=== PATIENT | male | born 1955 | race Caucasian/White ===

== ENCOUNTER → 2018-04-25 | Outpatient (CLI) | payer MEDICARE, OTHER ==
[2018-04-25 10:06] LABS: Basophils # (auto) 0.1 uL; Basophils % (auto) 1.3 % (0.0-2.0); Eosinophils # (auto) 0.2 uL; Eosinophils % (auto) 5.1 % (0.0-7.0); Hematocrit 52.4 % (41.0-53.0); Hemoglobin 17.1 g/dL (13.5-17.5); Lymphocytes # (auto) 1.1 uL; Lymphocytes % (auto) 24.9 % (10.0-50.0); Mean Corpuscular Hemoglobin 32.2 pg (28.0-32.0); Mean Corpuscular Hgb Conc. 32.7 g/dL (32.0-36.0); Mean Corpuscular Volume 98.5 fL (80.0-100.0); Monocytes # (auto) 0.6 uL; Monocytes % (auto) 13.4 % (0.0-12.0); Neutrophils # (auto) 2.5 uL; Neutrophils % (auto) 55.3 % (37.0-80.0); Nucleated Red Blood Cells % 0.1 %; Platelet Count (auto) 151 10^3/uL (140-450); Red Blood Cells 5.31 10^6/uL (4.5-5.90); Red Cell Distribution Width 18.1 % (11.8-14.3); White Blood Cell 4.6 10^3/uL (4.4-10.8)
[2018-04-25 10:46] LABS: Potassium 4.2 mmol/L (3.5-5.1)
[2018-04-25 11:02] LABS: Albumin 3.5 g/dL (3.4-5.0); BUN/Creatinine Ratio 4.7; Bilirubin, Total 0.6 mg/dL (0.2-1.0); Calcium 9.7 mg/dL (8.5-10.1); Phosphorus 6.2 mg/dL (2.5-4.90); Total Protein 8.4 g/dL (6.4-8.2); Uric Acid 4.7 mg/dL (3.5-7.2)
[2018-04-25 11:45] LABS: INR > 10 (0.9-1.15)
[2018-04-25 12:12] LABS: Free T4 (Free Thyroxine) 0.9 ng/dL (0.89-1.76)
[2018-04-25 12:13] LABS: Prostate Specific Antigen 0.9 ng/mL (0.0-4.0)
== END | disposition home or self-care (01) ==
LOC: LAB 09:25
PROVIDERS: ATTEND Internal Medicine
DX: I10 Essential (primary) hypertension (principal); I48.91 Unspecified atrial fibrillation; E11.40 Type 2 diabetes mellitus with diabetic neuropathy, unspecified; R35.1 Nocturia
CPT/HCPCS: 36415; 80053; 80061; 82043; 82607; 83036; 83970; 84100; 84153; 84439; 84443; 84550; 85025; 85610; 85652

== ENCOUNTER → 2018-04-26 | Outpatient (CLI) | payer MEDICARE, OTHER ==
[2018-04-26 10:30] LABS: Basophils # (auto) 0 uL; Basophils % (auto) 0.6 % (0.0-2.0); Eosinophils # (auto) 0.2 uL; Eosinophils % (auto) 4.2 % (0.0-7.0); Hematocrit 49.7 % (41.0-53.0); Hemoglobin 16.6 g/dL (13.5-17.5); Lymphocytes # (auto) 1.3 uL; Lymphocytes % (auto) 25.8 % (10.0-50.0); Mean Corpuscular Hemoglobin 32.6 pg (28.0-32.0); Mean Corpuscular Hgb Conc. 33.4 g/dL (32.0-36.0); Mean Corpuscular Volume 97.5 fL (80.0-100.0); Monocytes # (auto) 0.7 uL; Monocytes % (auto) 13.4 % (0.0-12.0); Neutrophils # (auto) 2.9 uL; Nucleated Red Blood Cells % 0.1 %; Platelet Count (auto) 137 10^3/uL (140-450); Red Cell Distribution Width 17.7 % (11.8-14.3); White Blood Cell 5.2 10^3/uL (4.4-10.8)
[2018-04-26 10:45] LABS: Prothrombin Time 49.4 sec (9.27-12.13)
[2018-04-26 10:52] LABS: INR 5.06 (0.9-1.15)
== END | disposition home or self-care (01) ==
LOC: LAB 08:50
PROVIDERS: ATTEND Internal Medicine
DX: D68.9 Coagulation defect, unspecified (principal); Z92.29 Personal history of other drug therapy; Z95.2 Presence of prosthetic heart valve
CPT/HCPCS: 36415; 85025; 85610

== ENCOUNTER → 2018-07-04 | Outpatient (CLI) | payer MEDICARE, OTHER | END | disposition home or self-care (01) | LOC: XYW 09:26 | PROVIDERS: ATTEND Internal Medicine Cardiovascular Disease | DX: I35.8 Other nonrheumatic aortic valve disorders (principal); I70.0 Atherosclerosis of aorta; I34.0 Nonrheumatic mitral (valve) insufficiency | CPT/HCPCS: 93306 ==

== ENCOUNTER → 2018-08-27 | Outpatient (CLI) | payer MEDICARE | END | disposition home or self-care (01) | LOC: LAB 10:52 | PROVIDERS: ATTEND Internal Medicine | DX: E11.9 Type 2 diabetes mellitus without complications (principal) | CPT/HCPCS: 36415; 83036 ==

== ENCOUNTER → 2019-05-01 | Outpatient (CLI) | payer MEDICARE | END | disposition home or self-care (01) | LOC: XYW 10:01 | PROVIDERS: ATTEND Internal Medicine | DX: Z01.810 Encounter for preprocedural cardiovascular examination (principal); I05.9 Rheumatic mitral valve disease, unspecified | CPT/HCPCS: 93306 ==

== ENCOUNTER → 2019-06-24 | Outpatient (CLI) | payer MEDICARE, OTHER ==
[2019-06-24 10:24] LABS: Basophils # (auto) 0 uL; Basophils % (auto) 0.7 % (0.0-2.0); Eosinophils # (auto) 0.2 uL; Eosinophils % (auto) 2.8 % (0.0-7.0); Hematocrit 44.1 % (41.0-53.0); Hemoglobin 15.2 g/dL (13.5-17.5); Lymphocytes # (auto) 1.1 uL; Lymphocytes % (auto) 15.9 % (10.0-50.0); Mean Corpuscular Hemoglobin 33.9 pg (28.0-32.0); Mean Corpuscular Hgb Conc. 34.4 g/dL (32.0-36.0); Mean Corpuscular Volume 98.7 fL (80.0-100.0); Monocytes # (auto) 0.5 uL; Monocytes % (auto) 7.7 % (0.0-12.0); Neutrophils # (auto) 4.8 uL; Neutrophils % (auto) 72.9 % (37.0-80.0); Nucleated Red Blood Cells % 0.1 %; Platelet Count (auto) 188 10^3/uL (140-450); Red Blood Cells 4.47 10^6/uL (4.5-5.90); Red Cell Distribution Width 15.8 % (11.8-14.3); White Blood Cell 6.7 10^3/uL (4.4-10.8)
[2019-06-24 10:42] LABS: Urine Bacteria FEW /hpf (None Seen); Urine Blood 1+ /uL (Negative); Urine WBC 34 /hpf (0 - 3)
[2019-06-24 10:58] LABS: Albumin 3.4 g/dL (3.4-5.0); Calcium 9.4 mg/dL (8.5-10.1); Potassium 4.4 mmol/L (3.5-5.1)
[2019-06-24 11:02] LABS: BUN/Creatinine Ratio 4.8; Bilirubin, Total 0.5 mg/dL (0.2-1.0); Total Protein 8.5 g/dL (6.4-8.2)
[2019-06-24 11:19] LABS: Free T4 (Free Thyroxine) 0.95 ng/dL (0.89-1.76); Prostate Specific Antigen 2.77 ng/mL (0.0-4.0)
== END | disposition home or self-care (01) ==
LOC: LAB 10:01
PROVIDERS: ATTEND Internal Medicine
DX: E11.21 Type 2 diabetes mellitus with diabetic nephropathy (principal); E11.22 Type 2 diabetes mellitus with diabetic chronic kidney disease; N18.6 End stage renal disease; R35.0 Frequency of micturition
CPT/HCPCS: 36415; 80053; 80061; 81001; 82043; 83036; 84153; 84439; 84443; 85025; 85652

== ENCOUNTER 2019-12-23 07:43 | Day surgery (SDC) | payer MEDICARE, OTHER ==
[2019-12-17 10:28] LABS: INR 2.53 (0.9-1.15); Partial Thromboplastin Time 40.6 sec (23.64-32.05)
[2019-12-17 10:33] LABS: Basophils # (auto) 0 10 ^3/uL (0-0.2); Basophils % (auto) 0.6 % (0.0-2.0); Eosinophils # (auto) 0.1 10 ^3/uL (0-0.8); Eosinophils % (auto) 1.5 % (0.0-7.0); Hematocrit 45.6 % (41.0-53.0); Hemoglobin 15.4 g/dL (13.5-17.5); Lymphocytes # (auto) 1.2 10 ^3/uL (0.4-5.4); Lymphocytes % (auto) 16.3 % (10.0-50.0); Mean Corpuscular Hemoglobin 34.8 pg (28.0-32.0); Mean Corpuscular Hgb Conc. 33.7 g/dL (32.0-36.0); Mean Corpuscular Volume 103.2 fL (80.0-100.0); Monocytes # (auto) 0.6 10 ^3/uL (0-1.3); Monocytes % (auto) 8.8 % (0.0-12.0); Neutrophils # (auto) 5.4 10 ^3/uL (1.6-8.6); Neutrophils % (auto) 72.8 % (37.0-80.0); Nucleated Red Blood Cells % 0.4 %; Platelet Count (auto) 152 10^3/uL (140-450); Red Blood Cells 4.42 10^6/uL (4.5-5.90); Red Cell Distribution Width 14.5 % (11.8-14.3); White Blood Cell 7.4 10^3/uL (4.4-10.8)
[2019-12-17 10:43] LABS: Albumin 3.7 g/dL (3.4-5.0); Calcium 10.4 mg/dL (8.5-10.1)
[2019-12-17 10:48] LABS: BUN/Creatinine Ratio 5.5; Bilirubin, Total 0.5 mg/dL (0.2-1.0); Total Protein 8.6 g/dL (6.4-8.2)
[~2019-12-23] VITALS: Ht 182.9 cm; Wt 90.7 kg
[~2019-12-23 07:43] MED LIST: ATOR40TA52 PO; CINA30TA2 PO; FERR1TAB17 PO; INSUINJ18 SC; LEVEMIR SC; LOSA25TA38 PO; NIFE1TAB36 PO; WARF6TAB21 PO
[2019-12-23 09:01] LABS: INR 1.08 (0.9-1.15)
[2019-12-23 09:09] LABS: Albumin 3.9 g/dL (3.4-5.0); BUN/Creatinine Ratio 4.4; Calcium 9.1 mg/dL (8.5-10.1); Potassium 3.8 mmol/L (3.5-5.1)
[2019-12-23 09:12] LABS: Bilirubin, Total 0.7 mg/dL (0.2-1.0); Total Protein 9.6 g/dL (6.4-8.2)
[2019-12-23] MEDS ORDERED: LIDOCAINE 2%HCL (LOCAL ANESTH.) INJ 20ML MDV ONE (11:57)
[2019-12-23] MEDS ORDERED: VANCOMYCIN 1GM/250ML 0 ML IV ONE (11:57)
[2019-12-23] MEDS ORDERED: VANCOMYCIN HCL 1000 MG VL ONE (11:57)
[2019-12-23] MEDS ORDERED: fentaNYL CITRATE 100 MCG/2 ML VL ONE (11:57)
[2019-12-23] MEDS ORDERED: MIDAZOLAM HCL 1MG/1ML-2 ML VIAL ONE (11:57)
[2019-12-23] MEDS ORDERED: ceFAZolin 1GM VL ONE (12:03)
[2019-12-23] MEDS ORDERED: VANCOMYCIN 1GM/250ML 250 ML IV ONE (12:06)
[2019-12-23] MEDS ORDERED: HYDROcodone-ACET 5/325MG TAB PO PRN (14:30)
[2019-12-23] MEDS ORDERED: ACETAMINOPHEN 325 MG TAB PO PRN (14:30)
[2019-12-23] MEDS ORDERED: cloNIDine HCL 0.1 MG TAB PO ONE (14:45)
== END 2019-12-23 17:00 | disposition home or self-care (01) ==
LOC: CATH 07:43
PROVIDERS: ATTEND Internal Medicine
DX: Z45.010 Encounter for checking and testing of cardiac pacemaker pulse generator [battery] (principal); I10 Essential (primary) hypertension; E11.9 Type 2 diabetes mellitus without complications; E78.5 Hyperlipidemia, unspecified; I73.9 Peripheral vascular disease, unspecified; Z87.891 Personal history of nicotine dependence; Z11.59 Encounter for screening for other viral diseases
CPT/HCPCS: 33228; 36415; 80053; 85025; 85610; 85730; 93005; J2250; J3010; J3370; J7030; U0003; 99152; 99153; J0690

== ENCOUNTER 2020-02-24 12:19 | Inpatient (IN) | payer MEDICARE, OTHER ==
[~2020-02-24] VITALS: Ht 182.9 cm; Wt 89.7 kg
[2020-02-24 13:18] LABS: Eosinophils # (auto) 0.1 10 ^3/uL (0-0.8); Eosinophils % (auto) 0.3 % (0.0-7.0); Hematocrit 41.4 % (41.0-53.0); Hemoglobin 14.5 g/dL (13.5-17.5); White Blood Cell 17.9 10^3/uL (4.4-10.8)
[2020-02-24 13:20] LABS: Basophils # (auto) 0.1 10 ^3/uL (0-0.2); Basophils % (auto) 0.3 % (0.0-2.0); Lymphocytes % (auto) 5.4 % (10.0-50.0); Mean Corpuscular Hemoglobin 34.5 pg (28.0-32.0); Mean Corpuscular Hgb Conc. 34.9 g/dL (32.0-36.0); Mean Corpuscular Volume 98.9 fL (80.0-100.0); Monocytes # (auto) 1.3 10 ^3/uL (0-1.3); Monocytes % (auto) 7.2 % (0.0-12.0); Neutrophils # (auto) 15.6 10 ^3/uL (1.6-8.6); Neutrophils % (auto) 86.8 % (37.0-80.0); Platelet Count (auto) 240 10^3/uL (140-450); Red Blood Cells 4.18 10^6/uL (4.5-5.90)
[2020-02-24 13:32] LABS: INR 2.63 (0.9-1.15); Partial Thromboplastin Time 43.8 sec (23.0-31.2)
[2020-02-24 13:35] LABS: Albumin 3.5 g/dL (3.4-5.0); Calcium 9.4 mg/dL (8.5-10.1); Potassium 4.4 mmol/L (3.5-5.1)
[2020-02-24 13:39] LABS: BUN/Creatinine Ratio 4.8; Bilirubin, Total 0.7 mg/dL (0.2-1.0); Total Protein 9.2 g/dL (6.4-8.2)
[2020-02-24] MEDS ORDERED: VANCOMYCIN PER PHARMACY 0 MG IV SCH (14:15)
[2020-02-24] MEDS ORDERED: NITROGLYCERIN 0.4 MG SL TAB SL PRN (14:15)
[2020-02-24] MEDS ORDERED: ACETAMINOPHEN 500 MG TAB PO PRN (14:15)
[2020-02-24] MEDS ORDERED: MORPHINE SULF INJ 2 MG/ML SYRINGE 1ML IV PRN ×2 (14:15)
[2020-02-24] MEDS ORDERED: DEXTROSE (50%) 50ML SYRG IV PRN (14:15)
[2020-02-24] MEDS ORDERED: HYDROcodone-ACET 5/325MG TAB PO PRN (14:15)
[2020-02-24] MEDS ORDERED: VANCOMYCIN 1GM/250ML 250 ML IV ONE (16:00)
[2020-02-24] MEDS: ACCU-CHEK COMFORT CURVE STRIP VI SCH ×2 (17:00→21:49)
[2020-02-24] MEDS: InsuLIN REG 1unit/0.01ml Soln (100units/ml) SC SCH ×2 (17:00→21:51)
[2020-02-24] MEDS ORDERED: VANCOMYCIN 500 MG in D5W 5% 100 ML IV ONE (17:00)
[2020-02-24] MEDS ORDERED: NIFE1TAB30 PO (18:33)
[2020-02-24] MEDS ORDERED: INSU100I49 SC (18:36)
[2020-02-24] MEDS ORDERED: WARF3TAB22 PO (18:37)
[2020-02-24] MEDS: NIFEdipine ER 30 MG TAB PO SCH (21:49)
[2020-02-24 22:00] VITALS: BP 132/54
[2020-02-25] VITALS (8 sets, daily range): BP systolic 96–146; BP diastolic 46–64
[2020-02-25] MEDS: ACCU-CHEK COMFORT CURVE STRIP VI SCH ×4 (06:27→22:09)
[2020-02-25] MEDS: InsuLIN REG 1unit/0.01ml Soln (100units/ml) SC SCH ×4 (06:27→22:06)
[2020-02-25 07:06] LABS: Basophils # (auto) 0 10 ^3/uL (0-0.2); Basophils % (auto) 0.3 % (0.0-2.0); Eosinophils # (auto) 0.3 10 ^3/uL (0-0.8); Mean Corpuscular Hemoglobin 34.4 pg (28.0-32.0)
[2020-02-25 07:09] LABS: INR 2.27 (0.9-1.15)
[2020-02-25 07:10] LABS: Eosinophils % (auto) 2.6 % (0.0-7.0); Hematocrit 37.4 % (41.0-53.0); Hemoglobin 13.1 g/dL (13.5-17.5); Lymphocytes # (auto) 1.1 10 ^3/uL (0.4-5.4); Lymphocytes % (auto) 10.7 % (10.0-50.0); Mean Corpuscular Volume 98.1 fL (80.0-100.0); Neutrophils # (auto) 8.2 10 ^3/uL (1.6-8.6); Neutrophils % (auto) 77.4 % (37.0-80.0); Nucleated Red Blood Cells % 0.1 %; Platelet Count (auto) 189 10^3/uL (140-450); Red Blood Cells 3.81 10^6/uL (4.5-5.90); Red Cell Distribution Width 16.4 % (11.8-14.3); White Blood Cell 10.6 10^3/uL (4.4-10.8)
[2020-02-25] MEDS ORDERED: FAMOTIDINE 20 MG TAB PO SCH (10:00)
[2020-02-25] MEDS ORDERED: ATORVASTATIN 20 MG TAB PO SCH (10:00)
[2020-02-25] MEDS ORDERED: LOSARTAN POTASSIUM 25 MG TAB PO SCH (10:00)
[2020-02-25 10:06] LABS: Eosinophils # (auto) 0.2 10 ^3/uL (0-0.8)
[2020-02-25 10:08] LABS: Basophils # (auto) 0 10 ^3/uL (0-0.2); Basophils % (auto) 0.4 % (0.0-2.0); Eosinophils % (auto) 2.3 % (0.0-7.0); Hematocrit 43.8 % (41.0-53.0); Hemoglobin 14.8 g/dL (13.5-17.5); Lymphocytes # (auto) 0.9 10 ^3/uL (0.4-5.4); Lymphocytes % (auto) 9.7 % (10.0-50.0); Mean Corpuscular Hemoglobin 33.6 pg (28.0-32.0); Mean Corpuscular Hgb Conc. 33.9 g/dL (32.0-36.0); Mean Corpuscular Volume 99.3 fL (80.0-100.0); Monocytes # (auto) 0.9 10 ^3/uL (0-1.3); Monocytes % (auto) 9.2 % (0.0-12.0); Neutrophils # (auto) 7.6 10 ^3/uL (1.6-8.6); Neutrophils % (auto) 78.4 % (37.0-80.0); Nucleated Red Blood Cells % 0.1 %; Platelet Count (auto) 210 10^3/uL (140-450); Red Blood Cells 4.41 10^6/uL (4.5-5.90); Red Cell Distribution Width 16.2 % (11.8-14.3); White Blood Cell 9.7 10^3/uL (4.4-10.8)
[2020-02-25 10:34] LABS: Albumin 3.2 g/dL (3.4-5.0); Calcium 8.9 mg/dL (8.5-10.1)
[2020-02-25 10:38] LABS: BUN/Creatinine Ratio 4.7; Bilirubin, Total 0.9 mg/dL (0.2-1.0); Total Protein 8.5 g/dL (6.4-8.2)
[2020-02-25] MEDS: INSULIN LANTUS (GLARGINE) 1 /0.01ml (100units/ml) SC SCH (11:00)
[2020-02-25 11:02] LABS: INR 2.25 (0.9-1.15)
[2020-02-25] MEDS ORDERED: ceFAZolin 1GM VL ONE (11:03)
[2020-02-25] MEDS: NIFEdipine ER 30 MG TAB PO SCH (22:08)
[2020-02-26 04:53] VITALS: BP 141/57
[2020-02-26] MEDS: InsuLIN REG 1unit/0.01ml Soln (100units/ml) SC SCH ×3 (06:43→17:00)
[2020-02-26] MEDS: INSULIN LANTUS (GLARGINE) 1 /0.01ml (100units/ml) SC SCH (06:43)
[2020-02-26] MEDS: ACCU-CHEK COMFORT CURVE STRIP VI SCH ×3 (06:48→17:00)
[2020-02-26 07:17] LABS: Basophils # (auto) 0 10 ^3/uL (0-0.2); Basophils % (auto) 0.4 % (0.0-2.0); Eosinophils # (auto) 0.2 10 ^3/uL (0-0.8); Eosinophils % (auto) 2.7 % (0.0-7.0); Hematocrit 40.2 % (41.0-53.0); Hemoglobin 13.6 g/dL (13.5-17.5); Lymphocytes % (auto) 12.6 % (10.0-50.0); Mean Corpuscular Hemoglobin 33.7 pg (28.0-32.0); Mean Corpuscular Hgb Conc. 33.9 g/dL (32.0-36.0); Mean Corpuscular Volume 99.5 fL (80.0-100.0); Monocytes # (auto) 0.7 10 ^3/uL (0-1.3); Monocytes % (auto) 9.8 % (0.0-12.0); Neutrophils # (auto) 5.7 10 ^3/uL (1.6-8.6); Neutrophils % (auto) 74.5 % (37.0-80.0); Nucleated Red Blood Cells % 0.1 %; Platelet Count (auto) 201 10^3/uL (140-450); Red Blood Cells 4.04 10^6/uL (4.5-5.90); White Blood Cell 7.6 10^3/uL (4.4-10.8)
[2020-02-26 07:41] LABS: Calcium 8.9 mg/dL (8.5-10.1); Potassium 4.5 mmol/L (3.5-5.1)
[2020-02-26 09:00] VITALS: BP 141/62
[2020-02-26 13:00] VITALS: BP 140/58
[2020-02-26 14:06] VITALS: BP 129/56
[2020-02-26] MEDS ORDERED: ATORVASTATIN 20 MG TAB PO SCH (22:00)
== END 2020-02-26 17:20 | disposition home or self-care (01) | DRG 463 ==
LOC: ER 12:19 → TELE-WESTW 12:20
PROVIDERS: ADMIT Nurse Practitioner Acute Care; ATTEND Internal Medicine
PROC: 5A1D70Z Performance of Urinary Filtration, Intermittent, Less than 6 Hours Per Day (ICD-10-PCS; 2020-02-25)
PROC: 0JBQ0ZZ Excision of Right Foot Subcutaneous Tissue and Fascia, Open Approach (ICD-10-PCS; principal; 2020-02-25 11:16)
DX: T87.43 Infection of amputation stump, right lower extremity (principal); N18.6 End stage renal disease; L03.115 Cellulitis of right lower limb; E87.1 Hypo-osmolality and hyponatremia; L02.611 Cutaneous abscess of right foot; I12.0 Hypertensive chronic kidney disease with stage 5 chronic kidney disease or end stage renal disease; D68.59 Other primary thrombophilia; E11.621 Type 2 diabetes mellitus with foot ulcer; L97.519 Non-pressure chronic ulcer of other part of right foot with unspecified severity; E11.22 Type 2 diabetes mellitus with diabetic chronic kidney disease; D72.829 Elevated white blood cell count, unspecified; E78.5 Hyperlipidemia, unspecified; D63.8 Anemia in other chronic diseases classified elsewhere; E21.2 Other hyperparathyroidism; E88.09 Other disorders of plasma-protein metabolism, not elsewhere classified; Z20.828 Contact with and (suspected) exposure to other viral communicable diseases; I48.91 Unspecified atrial fibrillation; Z79.4 Long term (current) use of insulin; Z95.2 Presence of prosthetic heart valve; Z80.9 Family history of malignant neoplasm, unspecified; Z99.2 Dependence on renal dialysis; Z83.3 Family history of diabetes mellitus; Z95.1 Presence of aortocoronary bypass graft; B99.8 Other infectious disease; Z79.899 Other long term (current) drug therapy
CPT/HCPCS: 36415; 71045; 73700; 80048; 80053; 80202; 82962; 83036; 85025; 85610; 85652; 85730; 86850; 86900; 86901; 87040; 87070; 87075; 87077; 87186; 87205; 87426; 90935; 93005; 93926; 96365; 97110; 97116; 97530; G0378; J0690; J1815; J7060

== ENCOUNTER 2020-07-06 13:24 | Inpatient (IN) | payer BC, MEDICARE, OTHER ==
[~2020-07-06] VITALS: Ht 182.9 cm; Wt 93.7 kg
[~2020-07-06 13:24] MED LIST changes: +INSU100I49 SC; -INSUINJ18 SC; -LOSA25TA38 PO; +NIFE1TAB30 PO; -NIFE1TAB36 PO; +WARF3TAB22 PO
[2020-07-06 14:24] LABS: Basophils # (auto) 0.1 10 ^3/uL (0-0.2); Basophils % (auto) 0.4 % (0.0-2.0); Eosinophils # (auto) 0 10 ^3/uL (0-0.8); Eosinophils % (auto) 0.3 % (0.0-7.0); Hematocrit 42.2 % (41.0-53.0); Hemoglobin 14.4 g/dL (13.5-17.5); Lymphocytes # (auto) 0.7 10 ^3/uL (0.4-5.4); Lymphocytes % (auto) 4.2 % (10.0-50.0); Mean Corpuscular Hemoglobin 32.9 pg (28.0-32.0); Mean Corpuscular Hgb Conc. 34.3 g/dL (32.0-36.0); Mean Corpuscular Volume 95.9 fL (80.0-100.0); Monocytes # (auto) 1.1 10 ^3/uL (0-1.3); Monocytes % (auto) 6.7 % (0.0-12.0); Neutrophils # (auto) 14.6 10 ^3/uL (1.6-8.6); Neutrophils % (auto) 88.4 % (37.0-80.0); Nucleated Red Blood Cells % 0.2 %; Red Cell Distribution Width 14.2 % (11.8-14.3); White Blood Cell 16.5 10^3/uL (4.4-10.8)
[2020-07-06 14:45] LABS: INR 2.22 (0.9-1.15); Partial Thromboplastin Time 40.7 sec (23.0-31.2)
[2020-07-06 14:56] LABS: Albumin 3.2 g/dL (3.4-5.0); Calcium 9.5 mg/dL (8.5-10.1); Potassium 3.7 mmol/L (3.5-5.1)
[2020-07-06 15:01] LABS: BUN/Creatinine Ratio 4.8; Bilirubin, Total 0.5 mg/dL (0.2-1.0); Total Protein 9.8 g/dL (6.4-8.2)
[2020-07-06] MEDS ORDERED: CLINDAMYCIN 600MG IV 50 ML IV ONE (16:15)
[2020-07-06] MEDS ORDERED: ONDANSETRON HCL 4 MG/2 ML VIAL IV PRN (17:15)
[2020-07-06] MEDS ORDERED: DEXTROSE (50%) 50ML SYRG IV PRN (17:15)
[2020-07-06] MEDS ORDERED: VANCOMYCIN PER PHARMACY 0 MG IV SCH (17:15)
[2020-07-06] MEDS ORDERED: MORPHINE SULFATE INJECTION 2 MG/ML SYRG IV PRN ×2 (17:15)
[2020-07-06] MEDS ORDERED: NITROGLYCERIN 0.4 MG SL TAB SL PRN (17:15)
[2020-07-06] MEDS ORDERED: HYDROcodone-ACET 5/325MG TAB PO PRN (17:15)
[2020-07-06 18:22] LABS: Cholesterol 143 mg/dL (< 200); HDL Cholesterol 47 mg/dL (40-59); LDL Cholesterol 71 mg/dL (< 100); Triglycerides 146 mg/dL (< 150)
[2020-07-06] MEDS ORDERED: VANCOMYCIN 1GM/250ML 250 ML IV ONE (20:00)
[2020-07-06] MEDS: InsuLIN REG 1unit/0.01ml Soln (100units/ml) SC SCH (22:00)
[2020-07-06] MEDS: NIFEdipine ER 30 MG TAB PO SCH (22:28)
[2020-07-06] MEDS: ACCU-CHEK COMFORT CURVE STRIP VI SCH (22:28)
[2020-07-06] MEDS: ATORVASTATIN 20 MG TAB PO SCH (22:28)
[2020-07-07 06:39] LABS: Basophils # (auto) 0.1 10 ^3/uL (0-0.2); Basophils % (auto) 0.4 % (0.0-2.0); Eosinophils # (auto) 0.2 10 ^3/uL (0-0.8); Eosinophils % (auto) 1.5 % (0.0-7.0); Hematocrit 36.5 % (41.0-53.0); Hemoglobin 12.6 g/dL (13.5-17.5); Lymphocytes # (auto) 1.1 10 ^3/uL (0.4-5.4); Lymphocytes % (auto) 7.8 % (10.0-50.0); Mean Corpuscular Hgb Conc. 34.5 g/dL (32.0-36.0); Mean Corpuscular Volume 95.8 fL (80.0-100.0); Monocytes # (auto) 1.3 10 ^3/uL (0-1.3); Monocytes % (auto) 9.6 % (0.0-12.0); Neutrophils # (auto) 10.9 10 ^3/uL (1.6-8.6); Neutrophils % (auto) 80.7 % (37.0-80.0); Nucleated Red Blood Cells % 0.1 %; Red Blood Cells 3.81 10^6/uL (4.5-5.90); Red Cell Distribution Width 14.1 % (11.8-14.3); White Blood Cell 13.5 10^3/uL (4.4-10.8)
[2020-07-07 06:49] LABS: INR 2.47 (0.9-1.15); Partial Thromboplastin Time 47.9 sec (23.0-31.2)
[2020-07-07 06:55] LABS: Potassium 3.9 mmol/L (3.5-5.1)
[2020-07-07 06:58] LABS: % Iron Saturation 19.6 % (20-55)
[2020-07-07] MEDS ORDERED: SODIUM CHL 0.9% 1000 ML BAG XX ONE (07:00)
[2020-07-07 07:03] LABS: BUN/Creatinine Ratio 5.3; Calcium 8.9 mg/dL (8.5-10.1)
[2020-07-07] MEDS: ACCU-CHEK COMFORT CURVE STRIP VI SCH ×4 (07:30→22:07)
[2020-07-07] MEDS: InsuLIN REG 1unit/0.01ml Soln (100units/ml) SC SCH ×4 (07:30→22:08)
[2020-07-07] MEDS: PANTOPRAZOLE 40 MG TAB PO SCH (10:58)
[2020-07-07] MEDS: LOSARTAN POTASSIUM 25 MG TAB PO SCH (10:58)
[2020-07-07] MEDS: cefTRIAXone 1GM/50ML D5W 50 ML IV SCH (10:59)
[2020-07-07] MEDS ORDERED: LOSA25TA38 PO (13:03)
[2020-07-07] MEDS ORDERED: TRAZ50TA2 PO (13:04)
[2020-07-07] MEDS ORDERED: VANCOMYCIN 1GM/250ML 250 ML IV ONE (16:00)
[2020-07-07 21:00] VITALS: BP 153/52
[2020-07-07] MEDS ORDERED: EPOETIN ALFA 4,000 UNIT/ML VL SC ONE (21:00)
[2020-07-07] MEDS: ATORVASTATIN 20 MG TAB PO SCH (22:06)
[2020-07-07] MEDS: NIFEdipine ER 30 MG TAB PO SCH (22:07)
[2020-07-07] MEDS: ACETAMINOPHEN 325 MG TAB PO PRN (22:11)
[2020-07-08 04:00] VITALS: BP 145/58
[2020-07-08] MEDS: ACCU-CHEK COMFORT CURVE STRIP VI SCH ×4 (06:20→23:07)
[2020-07-08] MEDS: InsuLIN REG 1unit/0.01ml Soln (100units/ml) SC SCH ×4 (06:22→22:00)
[2020-07-08] MEDS ORDERED: SODIUM CHL 0.9% 1000 ML BAG XX ONE (07:00)
[2020-07-08 07:07] LABS: Hematocrit 35.5 % (41.0-53.0); Hemoglobin 12.3 g/dL (13.5-17.5)
[2020-07-08 07:09] LABS: INR 3.46 (0.9-1.15); Partial Thromboplastin Time 55.7 sec (23.0-31.2)
[2020-07-08 07:16] LABS: % Iron Saturation 28.4 % (20-55)
[2020-07-08 07:18] LABS: Potassium 4.1 mmol/L (3.5-5.1)
[2020-07-08 07:32] LABS: BUN/Creatinine Ratio 5.8; Calcium 8.7 mg/dL (8.5-10.1)
[2020-07-08] MEDS ORDERED: VANCOMYCIN 1GM/250ML 250 ML IV ONE ×2 (10:15→11:30)
[2020-07-08] MEDS: LOSARTAN POTASSIUM 25 MG TAB PO SCH (12:00)
[2020-07-08] MEDS: cefTRIAXone 1GM/50ML D5W 50 ML IV SCH (12:43)
[2020-07-08] MEDS: PANTOPRAZOLE 40 MG TAB PO SCH (12:43)
[2020-07-08 17:00] VITALS: BP 156/37
[2020-07-08] MEDS ORDERED: EPOETIN ALFA 10,000 UNIT/1 ML VIAL SC ONE (21:00)
[2020-07-08 22:00] VITALS: BP 123/41
[2020-07-08] MEDS: ATORVASTATIN 20 MG TAB PO SCH (23:06)
[2020-07-08] MEDS: NIFEdipine ER 30 MG TAB PO SCH (23:07)
[2020-07-09 05:00] VITALS: BP 121/35
[2020-07-09 06:13] LABS: Basophils # (auto) 0.1 10 ^3/uL (0-0.2); Basophils % (auto) 0.6 % (0.0-2.0); Eosinophils # (auto) 0.2 10 ^3/uL (0-0.8); Eosinophils % (auto) 1.5 % (0.0-7.0); Hematocrit 36.7 % (41.0-53.0); Hemoglobin 12.6 g/dL (13.5-17.5); Lymphocytes # (auto) 1.1 10 ^3/uL (0.4-5.4); Lymphocytes % (auto) 10.7 % (10.0-50.0); Mean Corpuscular Hgb Conc. 34.4 g/dL (32.0-36.0); Mean Corpuscular Volume 96.1 fL (80.0-100.0); Monocytes % (auto) 9.7 % (0.0-12.0); Neutrophils # (auto) 8.2 10 ^3/uL (1.6-8.6); Neutrophils % (auto) 77.5 % (37.0-80.0); Nucleated Red Blood Cells % 0.1 %; Red Blood Cells 3.81 10^6/uL (4.5-5.90); Red Cell Distribution Width 14.4 % (11.8-14.3); White Blood Cell 10.6 10^3/uL (4.4-10.8)
[2020-07-09] MEDS: ACCU-CHEK COMFORT CURVE STRIP VI SCH ×4 (06:27→23:53)
[2020-07-09] MEDS: InsuLIN REG 1unit/0.01ml Soln (100units/ml) SC SCH ×4 (06:27→23:54)
[2020-07-09 06:28] LABS: Potassium 4.5 mmol/L (3.5-5.1)
[2020-07-09 06:33] LABS: BUN/Creatinine Ratio 4.5; Calcium 9.7 mg/dL (8.5-10.1)
[2020-07-09 07:37] LABS: INR 2.7 (0.9-1.15); Partial Thromboplastin Time 46.5 sec (23.0-31.2)
[2020-07-09 09:00] VITALS: BP 156/70
[2020-07-09] MEDS: LOSARTAN POTASSIUM 25 MG TAB PO SCH (09:20)
[2020-07-09] MEDS: cefTRIAXone 1GM/50ML D5W 50 ML IV SCH (09:20)
[2020-07-09] MEDS: PANTOPRAZOLE 40 MG TAB PO SCH (09:21)
[2020-07-09] MEDS ORDERED: ANGIOMAX 250 MG VIAL IV ONE (12:26)
[2020-07-09] MEDS ORDERED: fentaNYL CITRATE 100 MCG/2 ML VL ONE (12:26)
[2020-07-09] MEDS ORDERED: MIDAZOLAM HCL 2MG/2ML 2ml VIAL (1mg/ml) ONE (12:26)
[2020-07-09] MEDS ORDERED: LIDOCAINE 2%HCL (LOCAL ANESTH.) INJ 20ML MDV ONE (12:27)
[2020-07-09] MEDS ORDERED: IODIXANOL 320MG/ML 100ML BTL IV ONE (12:27)
[2020-07-09] MEDS ORDERED: SODIUM CHL 0.9% 0 ML ONE (12:27)
[2020-07-09] MEDS: SODIUM CHLOR 0.9% PF (SALINE LOCK) 10ML VIAL/SYR IV SCH ×2 (16:55→23:50)
[2020-07-09 17:00] VITALS: BP 133/55
[2020-07-09] MEDS ORDERED: VANCOMYCIN 1GM/250ML 250 ML IV ONE (18:00)
[2020-07-09 22:00] VITALS: BP 144/60
[2020-07-09] MEDS: ATORVASTATIN 20 MG TAB PO SCH (23:50)
[2020-07-09] MEDS: NIFEdipine ER 30 MG TAB PO SCH (23:53)
[2020-07-10 04:30] VITALS: BP 159/60
[2020-07-10] MEDS: SODIUM CHLOR 0.9% PF (SALINE LOCK) 10ML VIAL/SYR IV SCH ×3 (06:00→22:28)
[2020-07-10] MEDS: InsuLIN REG 1unit/0.01ml Soln (100units/ml) SC SCH ×4 (07:00→22:30)
[2020-07-10] MEDS ORDERED: SODIUM CHL 0.9% 1000 ML BAG XX ONE (07:00)
[2020-07-10] MEDS: ACCU-CHEK COMFORT CURVE STRIP VI SCH ×4 (07:05→22:29)
[2020-07-10] MEDS ORDERED: ROPIVACAINE 0.5% (5MG/ML) 20ML AMPULE IJ ONE (07:32)
[2020-07-10] MEDS ORDERED: ceFAZolin 1GM VL ONE (07:32)
[2020-07-10] MEDS ORDERED: MORPHINE SULF PF 2 MG/2 ML SYRG ONE (07:47)
[2020-07-10] MEDS ORDERED: fentaNYL CITRATE 100 MCG/2 ML VL ONE (07:47)
[2020-07-10] MEDS ORDERED: MIDAZOLAM HCL 2MG/2ML 2ml VIAL (1mg/ml) ONE (07:49)
[2020-07-10] MEDS ORDERED: PROPOFOL 10 MG/ML 20 ML IV ONE (07:51)
[2020-07-10] MEDS ORDERED: ceFAZolin 1GM/50ML 50 ML IV ONE (07:54)
[2020-07-10 08:00] VITALS: BP 154/58
[2020-07-10] MEDS ORDERED: ONDANSETRON HCL 4 MG/2 ML VIAL ONE (08:42)
[2020-07-10 09:00] VITALS: BP 154/68
[2020-07-10] MEDS ORDERED: HYDROmorphone HCL 2 MG/ML VL IV PRN (09:00)
[2020-07-10] MEDS ORDERED: METOCLOPRAMIDE HCL 5MG/ml INJ 2ml VIAL IV PRN (09:00)
[2020-07-10] MEDS: cefTRIAXone 1GM/50ML D5W 50 ML IV SCH (11:58)
[2020-07-10] MEDS: LOSARTAN POTASSIUM 25 MG TAB PO SCH (11:58)
[2020-07-10] MEDS: PANTOPRAZOLE 40 MG TAB PO SCH (11:58)
[2020-07-10 13:00] VITALS: BP 155/54
[2020-07-10 13:46] LABS: Hematocrit 36.2 % (41.0-53.0); Hemoglobin 12.3 g/dL (13.5-17.5)
[2020-07-10 17:00] VITALS: BP 160/62
[2020-07-10] MEDS ORDERED: EPOETIN ALFA 4,000 UNIT/ML VL SC ONE (21:00)
[2020-07-10 22:00] VITALS: BP 160/62
[2020-07-10] MEDS: NIFEdipine ER 30 MG TAB PO SCH (22:29)
[2020-07-10] MEDS: ATORVASTATIN 20 MG TAB PO SCH (22:29)
[2020-07-11 05:00] VITALS: BP 116/60
[2020-07-11] MEDS: ACCU-CHEK COMFORT CURVE STRIP VI SCH ×4 (06:10→22:13)
[2020-07-11] MEDS: InsuLIN REG 1unit/0.01ml Soln (100units/ml) SC SCH ×4 (06:11→22:34)
[2020-07-11] MEDS: SODIUM CHLOR 0.9% PF (SALINE LOCK) 10ML VIAL/SYR IV SCH ×3 (06:15→22:13)
[2020-07-11 09:00] VITALS: BP 155/59
[2020-07-11] MEDS: LOSARTAN POTASSIUM 25 MG TAB PO SCH (10:33)
[2020-07-11] MEDS: PANTOPRAZOLE 40 MG TAB PO SCH (10:33)
[2020-07-11 13:15] VITALS: BP 157/75
[2020-07-11] MEDS ORDERED: VANCOMYCIN 1GM/250ML 250 ML IV ONE (14:30)
[2020-07-11 17:20] VITALS: BP 161/80
[2020-07-11 22:00] VITALS: BP 159/66
[2020-07-11] MEDS: ATORVASTATIN 20 MG TAB PO SCH (22:13)
[2020-07-11] MEDS: NIFEdipine ER 30 MG TAB PO SCH (22:14)
[2020-07-12] MEDS: ACETAMINOPHEN 325 MG TAB PO PRN ×2 (04:00→20:58)
[2020-07-12 05:00] VITALS: BP 156/53
[2020-07-12] MEDS: ACCU-CHEK COMFORT CURVE STRIP VI SCH ×4 (06:18→22:00)
[2020-07-12] MEDS: SODIUM CHLOR 0.9% PF (SALINE LOCK) 10ML VIAL/SYR IV SCH ×3 (06:18→22:43)
[2020-07-12] MEDS: InsuLIN REG 1unit/0.01ml Soln (100units/ml) SC SCH ×4 (06:21→22:38)
[2020-07-12 06:22] LABS: BUN/Creatinine Ratio 6.1; Calcium 8.8 mg/dL (8.5-10.1); Magnesium 2.4 mg/dL (1.6-2.6)
[2020-07-12 06:46] LABS: Potassium 5.7 mmol/L (3.5-5.1)
[2020-07-12 08:00] VITALS: BP 143/84
[2020-07-12] MEDS ORDERED: SODIUM ZIRCONIUM CYCL 10 GM PAK PO ONE (08:00)
[2020-07-12 09:00] VITALS: BP 143/84
[2020-07-12] MEDS ORDERED: ENOXAPARIN SOD 100 MG/1 ML SYRINGE SC ONE (10:15)
[2020-07-12 11:35] LABS: Basophils # (auto) 0 10 ^3/uL (0-0.2); Basophils % (auto) 0.3 % (0.0-2.0); Eosinophils # (auto) 0.3 10 ^3/uL (0-0.8); Eosinophils % (auto) 2.8 % (0.0-7.0); Hematocrit 36.5 % (41.0-53.0); Hemoglobin 12.8 g/dL (13.5-17.5); Lymphocytes # (auto) 0.8 10 ^3/uL (0.4-5.4); Lymphocytes % (auto) 9.2 % (10.0-50.0); Mean Corpuscular Hemoglobin 33.3 pg (28.0-32.0); Mean Corpuscular Hgb Conc. 34.9 g/dL (32.0-36.0); Mean Corpuscular Volume 95.5 fL (80.0-100.0); Monocytes # (auto) 0.6 10 ^3/uL (0-1.3); Monocytes % (auto) 6.9 % (0.0-12.0); Neutrophils # (auto) 7.4 10 ^3/uL (1.6-8.6); Neutrophils % (auto) 80.8 % (37.0-80.0); Red Blood Cells 3.83 10^6/uL (4.5-5.90); Red Cell Distribution Width 14.2 % (11.8-14.3); White Blood Cell 9.2 10^3/uL (4.4-10.8)
[2020-07-12 11:58] LABS: INR 1.23 (0.9-1.15)
[2020-07-12 12:14] LABS: Albumin 2.4 g/dL (3.4-5.0); Bilirubin, Direct 0.1 mg/dL (0-0.2)
[2020-07-12 12:17] LABS: Bilirubin, Total 0.4 mg/dL (0.2-1.0); Total Protein 8.7 g/dL (6.4-8.2)
[2020-07-12] MEDS: PANTOPRAZOLE 40 MG TAB PO SCH (12:20)
[2020-07-12] MEDS: LOSARTAN POTASSIUM 25 MG TAB PO SCH (12:20)
[2020-07-12 13:30] VITALS: BP 168/61
[2020-07-12] MEDS ORDERED: VANCOMYCIN 1GM/250ML 250 ML IV ONE (16:00)
[2020-07-12 16:59] VITALS: BP 163/65
[2020-07-12] MEDS ORDERED: WARFARIN SODIUM 1 MG TAB PO ONE (17:00)
[2020-07-12 22:00] VITALS: BP 149/52
[2020-07-12] MEDS: ATORVASTATIN 20 MG TAB PO SCH (22:37)
[2020-07-12] MEDS: NIFEdipine ER 30 MG TAB PO SCH (22:38)
[2020-07-13 05:00] VITALS: BP 148/56
[2020-07-13 06:15] LABS: Basophils # (auto) 0.1 10 ^3/uL (0-0.2); Basophils % (auto) 0.7 % (0.0-2.0); Eosinophils # (auto) 0.3 10 ^3/uL (0-0.8); Eosinophils % (auto) 2.6 % (0.0-7.0); Hematocrit 35.5 % (41.0-53.0); Hemoglobin 12.5 g/dL (13.5-17.5); Lymphocytes # (auto) 1.1 10 ^3/uL (0.4-5.4); Lymphocytes % (auto) 10.6 % (10.0-50.0); Mean Corpuscular Hemoglobin 33.4 pg (28.0-32.0); Mean Corpuscular Hgb Conc. 35.2 g/dL (32.0-36.0); Monocytes # (auto) 0.7 10 ^3/uL (0-1.3); Monocytes % (auto) 6.5 % (0.0-12.0); Neutrophils # (auto) 8.3 10 ^3/uL (1.6-8.6); Neutrophils % (auto) 79.6 % (37.0-80.0); Red Blood Cells 3.74 10^6/uL (4.5-5.90); White Blood Cell 10.5 10^3/uL (4.4-10.8)
[2020-07-13 06:27] LABS: INR 1.18 (0.9-1.15)
[2020-07-13] MEDS: ACCU-CHEK COMFORT CURVE STRIP VI SCH ×3 (06:27→18:00)
[2020-07-13] MEDS: SODIUM CHLOR 0.9% PF (SALINE LOCK) 10ML VIAL/SYR IV SCH ×2 (06:27→16:02)
[2020-07-13 06:31] LABS: BUN/Creatinine Ratio 6.2
[2020-07-13] MEDS: InsuLIN REG 1unit/0.01ml Soln (100units/ml) SC SCH ×3 (06:32→18:26)
[2020-07-13 06:38] LABS: Potassium 5.7 mmol/L (3.5-5.1)
[2020-07-13] MEDS ORDERED: SODIUM CHL 0.9% 1000 ML BAG XX ONE (07:00)
[2020-07-13 08:15] VITALS: BP 148/65
[2020-07-13 09:00] VITALS: BP 153/70
[2020-07-13] MEDS ORDERED: SODIUM ZIRCONIUM CYCL 10 GM PAK PO ONE (09:15)
[2020-07-13] MEDS ORDERED: ENOXAPARIN SOD 100 MG/1 ML SYRINGE SC SCH (10:00)
[2020-07-13 13:00] VITALS: BP_SYST 149; BP_SYST 163; BP_DIAS 52; BP_DIAS 69
[2020-07-13] MEDS: PANTOPRAZOLE 40 MG TAB PO SCH (15:30)
[2020-07-13] MEDS: LOSARTAN POTASSIUM 25 MG TAB PO SCH (15:30)
[2020-07-13 17:00] VITALS: BP 163/74
[2020-07-13] MEDS ORDERED: WARFARIN SODIUM 2 MG TAB PO ONE (17:00)
[2020-07-13] MEDS ORDERED: LABETALOL HCL 5 MG/ML 4ML SYRINGE IV PRN (17:15)
== END 2020-07-13 19:50 | disposition home or self-care (01) | DRG 853 ==
LOC: ER 13:24 → TELE 13:25 → TELE-CENTR 07-08 11:29
PROVIDERS: ADMIT Nurse Practitioner Acute Care; ATTEND Internal Medicine
PROC: 5A1D70Z Performance of Urinary Filtration, Intermittent, Less than 6 Hours Per Day (ICD-10-PCS; 2020-07-08)
PROC: 05H933Z Insertion of Infusion Device into Right Brachial Vein, Percutaneous Approach (ICD-10-PCS; 2020-07-08)
PROC: B54MZZA Ultrasonography of Right Upper Extremity Veins, Guidance (ICD-10-PCS; 2020-07-08)
PROC: B41GYZZ Fluoroscopy of Left Lower Extremity Arteries using Other Contrast (ICD-10-PCS; 2020-07-09)
PROC: B41FYZZ Fluoroscopy of Right Lower Extremity Arteries using Other Contrast (ICD-10-PCS; 2020-07-09)
PROC: 5A1D70Z Performance of Urinary Filtration, Intermittent, Less than 6 Hours Per Day (ICD-10-PCS; 2020-07-10)
PROC: 0Y6S0Z0 Detachment at Left 2nd Toe, Complete, Open Approach (ICD-10-PCS; principal; 2020-07-10 08:14)
PROC: 5A1D70Z Performance of Urinary Filtration, Intermittent, Less than 6 Hours Per Day (ICD-10-PCS; 2020-07-13)
DX: A41.9 Sepsis, unspecified organism (principal); N18.6 End stage renal disease; M86.8X7 Other osteomyelitis, ankle and foot; I12.0 Hypertensive chronic kidney disease with stage 5 chronic kidney disease or end stage renal disease; E11.52 Type 2 diabetes mellitus with diabetic peripheral angiopathy with gangrene; I96 Gangrene, not elsewhere classified; I48.91 Unspecified atrial fibrillation; E11.69 Type 2 diabetes mellitus with other specified complication; E78.5 Hyperlipidemia, unspecified; L03.032 Cellulitis of left toe; D63.1 Anemia in chronic kidney disease; E11.22 Type 2 diabetes mellitus with diabetic chronic kidney disease; Z20.822 Contact with and (suspected) exposure to COVID-19; E11.40 Type 2 diabetes mellitus with diabetic neuropathy, unspecified; E11.621 Type 2 diabetes mellitus with foot ulcer; E87.5 Hyperkalemia; L97.529 Non-pressure chronic ulcer of other part of left foot with unspecified severity; E11.42 Type 2 diabetes mellitus with diabetic polyneuropathy; M89.9 Disorder of bone, unspecified; Z79.01 Long term (current) use of anticoagulants; Z79.4 Long term (current) use of insulin; Z80.9 Family history of malignant neoplasm, unspecified; Z83.3 Family history of diabetes mellitus; Z87.891 Personal history of nicotine dependence; Z89.422 Acquired absence of other left toe(s); Z95.0 Presence of cardiac pacemaker; Z95.2 Presence of prosthetic heart valve
CPT/HCPCS: 36415; 71045; 73700; 75710; 80048; 80053; 80061; 80076; 80202; 82962; 83021; 83036; 83540; 83550; 83735; 84132; 85014; 85018; 85025; 85610; 85652; 85660; 85730; 86850; 86900; 86901; 87040; 87070; 87075; 87077; 87186; 87205; 87426; 90935; 93005; 93306; 93926; 99152; G0378; J0690; J0696; J0885; J1642; J1815; J2250; J2405; J2704; J3490; Q9967

== ENCOUNTER 2020-08-12 13:50 | Emergency (ER) | payer BC, OTHER ==
[~2020-08-12] VITALS: Ht 182.9 cm; Wt 90.7 kg
[~2020-08-12 13:50] MED LIST changes: +LOSA25TA38 PO; +TRAZ50TA2 PO
[2020-08-12] MEDS ORDERED: cloNIDine HCL 0.1 MG TAB PO ONE (14:30)
[2020-08-12 14:39] VITALS: BP 190/74
== END 2020-08-12 15:40 | disposition home or self-care (01) ==
LOC: ER 13:50
DX: I16.0 Hypertensive urgency (principal); E11.22 Type 2 diabetes mellitus with diabetic chronic kidney disease; I12.0 Hypertensive chronic kidney disease with stage 5 chronic kidney disease or end stage renal disease; N18.6 End stage renal disease; E78.5 Hyperlipidemia, unspecified; Z79.899 Other long term (current) drug therapy
CPT/HCPCS: 93005

== ENCOUNTER 2020-10-05 15:38 | Inpatient (IN) | payer BC, OTHER ==
[~2020-10-05] VITALS: Ht 185.4 cm; Wt 90.7 kg
[2020-10-05 16:33] LABS: Basophils # (auto) 0.1 10 ^3/uL (0-0.2); Eosinophils # (auto) 0.1 10 ^3/uL (0-0.8); Eosinophils % (auto) 2.5 % (0.0-7.0); Hematocrit 33.4 % (41.0-53.0); Hemoglobin 11.1 g/dL (13.5-17.5); Lymphocytes # (auto) 0.8 10 ^3/uL (0.4-5.4); Lymphocytes % (auto) 14.1 % (10.0-50.0); Mean Corpuscular Hemoglobin 32.9 pg (28.0-32.0); Mean Corpuscular Hgb Conc. 33.2 g/dL (32.0-36.0); Mean Corpuscular Volume 99.1 fL (80.0-100.0); Monocytes # (auto) 0.7 10 ^3/uL (0-1.3); Monocytes % (auto) 12.1 % (0.0-12.0); Neutrophils % (auto) 70.3 % (37.0-80.0); Nucleated Red Blood Cells % 0.1 %; Platelet Count (auto) 189 10^3/uL (140-450); Red Blood Cells 3.37 10^6/uL (4.5-5.90); White Blood Cell 5.6 10^3/uL (4.4-10.8)
[2020-10-05 16:49] LABS: Albumin 3.5 g/dL (3.4-5.0); BUN/Creatinine Ratio 6.6; Potassium 5.2 mmol/L (3.5-5.1)
[2020-10-05 16:53] LABS: Bilirubin, Total 0.3 mg/dL (0.2-1.0); Total Protein 7.5 g/dL (6.4-8.2)
[2020-10-05] MEDS ORDERED: cloNIDine HCL 0.1 MG TAB PO ONE (20:30)
[2020-10-05] MEDS ORDERED: NITROGLYCERIN 0.4 MG SL TAB SL PRN (21:00)
[2020-10-05] MEDS ORDERED: ACETAMINOPHEN 325 MG TAB PO PRN (21:00)
[2020-10-05] MEDS ORDERED: DEXTROSE (50%) 50ML SYRG IV PRN (21:00)
[2020-10-05] MEDS ORDERED: MORPHINE SULF INJ 2 MG/ML SYRINGE 1ML IV PRN (21:00)
[2020-10-05] MEDS ORDERED: ONDANSETRON HCL 4 MG/2 ML VIAL IV PRN (21:00)
[2020-10-05] MEDS ORDERED: cloNIDine HCL 0.1 MG TAB PO PRN (21:00)
[2020-10-05 21:39] LABS: INR 2.57 (0.9-1.15)
[2020-10-05] MEDS ORDERED: NIFEdipine ER 30 MG TAB PO SCH (22:00)
[2020-10-05] MEDS ORDERED: ATORVASTATIN 20 MG TAB PO SCH (22:00)
[2020-10-05] MEDS: InsuLIN REG 1unit/0.01ml Soln (100units/ml) SC SCH (22:55)
[2020-10-05] MEDS: ACCU-CHEK COMFORT CURVE STRIP VI SCH (22:55)
[2020-10-06 06:29] LABS: BUN/Creatinine Ratio 6.5; Calcium 9.2 mg/dL (8.5-10.1); Potassium 5.3 mmol/L (3.5-5.1)
[2020-10-06 06:55] LABS: Basophils # (auto) 0 10 ^3/uL (0-0.2); Eosinophils # (auto) 0.2 10 ^3/uL (0-0.8); Monocytes # (auto) 0.7 10 ^3/uL (0-1.3); Neutrophils # (auto) 3.7 10 ^3/uL (1.6-8.6); Nucleated Red Blood Cells % 0.2 %
[2020-10-06 06:57] LABS: Basophils % (auto) 0.6 % (0.0-2.0); Eosinophils % (auto) 3.7 % (0.0-7.0); Hematocrit 31.2 % (41.0-53.0); Lymphocytes # (auto) 0.8 10 ^3/uL (0.4-5.4); Lymphocytes % (auto) 15.3 % (10.0-50.0); Mean Corpuscular Hemoglobin 34.8 pg (28.0-32.0); Mean Corpuscular Hgb Conc. 35.2 g/dL (32.0-36.0); Monocytes % (auto) 12.2 % (0.0-12.0); Neutrophils % (auto) 68.2 % (37.0-80.0); Platelet Count (auto) 170 10^3/uL (140-450); Red Blood Cells 3.15 10^6/uL (4.5-5.90); Red Cell Distribution Width 15.2 % (11.8-14.3); White Blood Cell 5.4 10^3/uL (4.4-10.8)
[2020-10-06] MEDS: InsuLIN REG 1unit/0.01ml Soln (100units/ml) SC SCH ×2 (07:31→11:30)
[2020-10-06] MEDS: ACCU-CHEK COMFORT CURVE STRIP VI SCH ×2 (07:32→11:30)
[2020-10-06] MEDS ORDERED: ASPirin 81 mg TAB PO SCH (10:00)
[2020-10-06] MEDS ORDERED: PANTOPRAZOLE 40 MG TAB PO SCH (10:00)
[2020-10-06] MEDS ORDERED: LOSARTAN POTASSIUM 25 MG TAB PO SCH (10:00)
[2020-10-06] MEDS ORDERED: NIFE1TAB30 (13:06)
[2020-10-06] MEDS ORDERED: LOS25T PO (13:06)
[2020-10-06] MEDS ORDERED: HYDR-4298 PO (13:06)
[2020-10-06 16:47] VITALS: BP 147/57
[2020-10-06 17:44] VITALS: BP 147/57
== END 2020-10-06 18:40 | disposition home or self-care (01) | DRG 280 ==
LOC: ER 15:38 → TELE 20:48 → TELE-WESTW 10-06 14:40
PROVIDERS: ADMIT Nurse Practitioner; ATTEND Internal Medicine
PROC: 5A1D70Z Performance of Urinary Filtration, Intermittent, Less than 6 Hours Per Day (ICD-10-PCS; principal; 2020-10-06)
DX: I21.4 Non-ST elevation (NSTEMI) myocardial infarction (principal); N18.6 End stage renal disease; I13.11 Hypertensive heart and chronic kidney disease without heart failure, with stage 5 chronic kidney disease, or end stage renal disease; D64.9 Anemia, unspecified; E11.22 Type 2 diabetes mellitus with diabetic chronic kidney disease; I48.91 Unspecified atrial fibrillation; Z20.822 Contact with and (suspected) exposure to COVID-19; Z99.2 Dependence on renal dialysis; Z83.3 Family history of diabetes mellitus
CPT/HCPCS: 36415; 71045; 80048; 80053; 82962; 84484; 85025; 85610; 85730; 87426; 90935; 93005; G0378

== ENCOUNTER → 2021-03-03 | Outpatient (CLI) | payer BC, OTHER ==
[~2021-03-03] MED LIST changes: +HYDR-4298 PO; +LOS25T PO; +NIFE1TAB30
[2021-03-03 12:42] LABS: Albumin 3.4 g/dL (3.4-5.0); BUN/Creatinine Ratio 4.5; Calcium 9.9 mg/dL (8.5-10.1); Potassium 4.4 mmol/L (3.5-5.1)
[2021-03-03 12:44] LABS: Bilirubin, Total 0.3 mg/dL (0.2-1.0); Total Protein 7.9 g/dL (6.4-8.2)
== END | disposition home or self-care (01) ==
LOC: LAB 12:02
PROVIDERS: ATTEND Internal Medicine
DX: E11.9 Type 2 diabetes mellitus without complications (principal); E78.5 Hyperlipidemia, unspecified; D64.9 Anemia, unspecified
CPT/HCPCS: 36415; 80053; 82607; 83036

== ENCOUNTER → 2021-06-28 | Outpatient (CLI) | payer BC, OTHER ==
[2021-06-28 10:21] LABS: Basophils # (auto) 0 10 ^3/uL (0-0.2); Basophils % (auto) 0.4 % (0.0-2.0); Eosinophils # (auto) 0.1 10 ^3/uL (0-0.8); Eosinophils % (auto) 2.2 % (0.0-7.0); Hematocrit 28.5 % (41.0-53.0); Hemoglobin 9.7 g/dL (13.5-17.5); Lymphocytes # (auto) 0.7 10 ^3/uL (0.4-5.4); Mean Corpuscular Hemoglobin 33.5 pg (28.0-32.0); Mean Corpuscular Hgb Conc. 34.2 g/dL (32.0-36.0); Mean Corpuscular Volume 98.2 fL (80.0-100.0); Monocytes # (auto) 0.6 10 ^3/uL (0-1.3); Monocytes % (auto) 9.9 % (0.0-12.0); Neutrophils % (auto) 76.5 % (37.0-80.0); Nucleated Red Blood Cells % 0.1 %; Red Cell Distribution Width 14.5 % (11.8-14.3); White Blood Cell 6.5 10^3/uL (4.4-10.8)
[2021-06-28 10:27] LABS: Potassium 4.5 mmol/L (3.5-5.1)
[2021-06-28 10:33] LABS: Free T4 (Free Thyroxine) 1.01 ng/dL (0.89-1.76); Prostate Specific Antigen 1.15 ng/mL (0.0-4.0)
[2021-06-28 10:41] LABS: Albumin 3.5 g/dL (3.4-5.0); BUN/Creatinine Ratio 5.6; Bilirubin, Total 0.4 mg/dL (0.2-1.0); Calcium 9.6 mg/dL (8.5-10.1); Total Protein 7.3 g/dL (6.4-8.2)
== END | disposition home or self-care (01) ==
LOC: LAB 08:55
PROVIDERS: ATTEND Internal Medicine
DX: I12.0 Hypertensive chronic kidney disease with stage 5 chronic kidney disease or end stage renal disease (principal); E11.21 Type 2 diabetes mellitus with diabetic nephropathy; N18.6 End stage renal disease
CPT/HCPCS: 36415; 80053; 80061; 82607; 83036; 84153; 84439; 84443; 85025; 85652

== ENCOUNTER → 2022-02-02 | Outpatient (CLI) | payer BC | END | disposition home or self-care (01) | LOC: XYW 12:53 | PROVIDERS: ATTEND Internal Medicine | DX: I08.3 Combined rheumatic disorders of mitral, aortic and tricuspid valves (principal); I48.0 Paroxysmal atrial fibrillation | CPT/HCPCS: 93306 ==

== ENCOUNTER 2022-02-20 16:25 | Inpatient (IN) | payer BC, MEDICAID ==
[~2022-02-20] VITALS: Ht 182.9 cm; Wt 81.8 kg
[2022-02-20 23:29] LABS: Basophils # (auto) 0 10 ^3/uL (0-0.2); Basophils % (auto) 0.2 % (0.0-2.0); Eosinophils # (auto) 0 10 ^3/uL (0-0.8); Eosinophils % (auto) 0.1 % (0.0-7.0); Hematocrit 30.7 % (41.0-53.0); Hemoglobin 10.1 g/dL (13.5-17.5); Lymphocytes # (auto) 0.8 10 ^3/uL (0.4-5.4); Lymphocytes % (auto) 6.9 % (10.0-50.0); Mean Corpuscular Hemoglobin 30.9 pg (28.0-32.0); Mean Corpuscular Hgb Conc. 32.9 g/dL (32.0-36.0); Mean Corpuscular Volume 93.7 fL (80.0-100.0); Monocytes # (auto) 0.8 10 ^3/uL (0-1.3); Monocytes % (auto) 6.3 % (0.0-12.0); Neutrophils # (auto) 10.6 10 ^3/uL (1.6-8.6); Neutrophils % (auto) 86.5 % (37.0-80.0); Red Blood Cells 3.28 10^6/uL (4.5-5.90); White Blood Cell 12.3 10^3/uL (4.4-10.8)
[2022-02-20 23:50] LABS: Albumin 3.7 g/dL (3.4-5.0); Potassium 4.2 mmol/L (3.5-5.1)
[2022-02-20 23:51] LABS: BUN/Creatinine Ratio 6.4
[2022-02-20 23:54] LABS: Bilirubin, Total 0.4 mg/dL (0.2-1.0); Total Protein 7.4 g/dL (6.4-8.2)
[2022-02-21] LABS: Lactic Acid w/Reflex 2.3 mmol/L (0.4-2.0)
[2022-02-21] MEDS ORDERED: cefTRIAXone 1GM/50ML D5W 50 ML IV ONE (03:30)
[2022-02-21] MEDS ORDERED: ACETAMINOPHEN 325 MG TAB PO PRN (04:30)
[2022-02-21] MEDS ORDERED: ONDANSETRON HCL 4 MG/2 ML VIAL IV PRN (04:30)
[2022-02-21] MEDS ORDERED: NITROGLYCERIN 0.4 MG SL TAB SL PRN (04:30)
[2022-02-21] MEDS ORDERED: MORPHINE SULFATE INJ 2 MG/ml SYRG IV PRN (04:30)
[2022-02-21] MEDS ORDERED: DEXTROSE (50%) 50ML SYRG IV PRN (04:30)
[2022-02-21] MEDS ORDERED: HYDROcodone-ACET 5/325MG TAB PO PRN (04:30)
[2022-02-21 05:32] LABS: Partial Thromboplastin Time 64.6 sec (24.6-33.4)
[2022-02-21 05:45] LABS: INR 4.42 (0.9-1.15)
[2022-02-21] MEDS: hydrALAZINE HCL 25 MG TAB PO SCH ×2 (06:02→14:07)
[2022-02-21] MEDS: InsuLIN REG 1unit/0.01ml Soln (100units/ml) SC SCH ×2 (06:41→12:19)
[2022-02-21] MEDS: ACCU-CHEK COMFORT CURVE STRIP VI SCH ×2 (06:41→12:15)
[2022-02-21] MEDS ORDERED: cefTRIAXone 1GM/50ML D5W 50 ML IV SCH (09:00)
[2022-02-21] MEDS ORDERED: PANTOPRAZOLE 40 MG TAB PO SCH (10:00)
[2022-02-21] MEDS ORDERED: ASPirin 81 mg TAB PO SCH (10:00)
[2022-02-21] MEDS ORDERED: LOSARTAN POTASSIUM 25 MG TAB PO SCH (10:00)
[2022-02-21 14:00] VITALS: BP 137/57
[2022-02-21] MEDS ORDERED: BACDST PO (14:53)
[2022-02-21] MEDS ORDERED: ATORVASTATIN 20 MG TAB PO SCH (22:00)
== END 2022-02-21 15:30 | disposition home or self-care (01) | DRG 280 ==
LOC: ER 16:25 → TELE 02-21 04:27
PROVIDERS: ADMIT Nurse Practitioner; ATTEND Internal Medicine
DX: T82.7XXA Infection and inflammatory reaction due to other cardiac and vascular devices, implants and grafts, initial encounter (principal); I21.4 Non-ST elevation (NSTEMI) myocardial infarction; N18.6 End stage renal disease; I12.0 Hypertensive chronic kidney disease with stage 5 chronic kidney disease or end stage renal disease; L03.818 Cellulitis of other sites; D68.9 Coagulation defect, unspecified; E11.22 Type 2 diabetes mellitus with diabetic chronic kidney disease; E11.51 Type 2 diabetes mellitus with diabetic peripheral angiopathy without gangrene; E78.5 Hyperlipidemia, unspecified; I48.91 Unspecified atrial fibrillation; Z20.822 Contact with and (suspected) exposure to COVID-19; Y83.2 Surgical operation with anastomosis, bypass or graft as the cause of abnormal reaction of the patient, or of later complication, without mention of misadventure at the time of the procedure; Y92.89 Other specified places as the place of occurrence of the external cause; Z83.3 Family history of diabetes mellitus; Z95.0 Presence of cardiac pacemaker; Z79.01 Long term (current) use of anticoagulants; Z79.4 Long term (current) use of insulin; Z95.2 Presence of prosthetic heart valve; Z99.2 Dependence on renal dialysis; Z90.49 Acquired absence of other specified parts of digestive tract
CPT/HCPCS: 36415; 71045; 80053; 82962; 83605; 84484; 85025; 85610; 85730; 93005; 96374; G0378; J0696; J1815

== ENCOUNTER 2022-05-17 08:23 | Inpatient (IN) | payer BC, MEDICAID ==
[~2022-05-17] VITALS: Ht 182.9 cm; Wt 78.3 kg
[2022-05-17] VITALS (10 sets, daily range): BP systolic 111–194; BP diastolic 44–63
[~2022-05-17 08:23] MED LIST changes: +BACDST PO
[2022-05-17 09:20] LABS: Basophils # (auto) 0.1 10 ^3/uL (0-0.2); Eosinophils # (auto) 0 10 ^3/uL (0-0.8); Lymphocytes # (auto) 0.4 10 ^3/uL (0.4-5.4); Monocytes # (auto) 0.9 10 ^3/uL (0-1.3); Red Cell Distribution Width 18.6 % (11.8-14.3)
[2022-05-17 09:23] LABS: Basophils % (auto) 0.6 % (0.0-2.0); Hematocrit 25.9 % (41.0-53.0); Hemoglobin 7.7 g/dL (13.5-17.5); Lymphocytes % (auto) 2.9 % (10.0-50.0); Mean Corpuscular Hemoglobin 30.6 pg (28.0-32.0); Mean Corpuscular Hgb Conc. 29.9 g/dL (32.0-36.0); Mean Corpuscular Volume 102.4 fL (80.0-100.0); Monocytes % (auto) 5.6 % (0.0-12.0); Neutrophils # (auto) 14.3 10 ^3/uL (1.6-8.6); Neutrophils % (auto) 90.9 % (37.0-80.0); Nucleated Red Blood Cells % 0.2 %; Red Blood Cells 2.53 10^6/uL (4.5-5.90); White Blood Cell 15.7 10^3/uL (4.4-10.8)
[2022-05-17 09:48] LABS: Albumin 3.2 g/dL (3.4-5.0); Calcium 10.4 mg/dL (8.5-10.1)
[2022-05-17 09:50] LABS: BUN/Creatinine Ratio 10.2; Bilirubin, Total 0.8 mg/dL (0.2-1.0)
[2022-05-17 10:05] LABS: Lactic Acid w/Reflex 14.6 mmol/L (0.4-2.0)
[2022-05-17 10:37] LABS: Partial Thromboplastin Time 64.5 sec (24.6-33.4)
[2022-05-17 10:38] LABS: INR > 8.0 (0.9-1.15)
[2022-05-17] MEDS ORDERED: MIDAZOLAM HCL 2MG/2ML 2ml VIAL (1mg/ml) ONE (10:44)
[2022-05-17] MEDS ORDERED: MIDAZOLAM DRIP 50 mg/50mL 50 ML IV ONE ×2 (10:46→10:55)
[2022-05-17 10:50] LABS: Potassium 7.4 mmol/L (3.5-5.1)
[2022-05-17] MEDS ORDERED: MIDAZOLAM HCL 2MG/2ML 2ml VIAL (1mg/ml) IV ONE (11:15)
[2022-05-17] MEDS: fentaNYL Drip 2500mCg/250mlNS 250 ML IV SCH (11:15)
[2022-05-17] MEDS ORDERED: CALCIUM GLUC 1,000mg/50ml-NS 50 ML IV ONE ×2 (11:30→12:45)
[2022-05-17] MEDS ORDERED: SODIUM BICARBONATE 8.4% INJ 50ML SYRINGE IV ONE ×3 (11:30→21:35)
[2022-05-17] MEDS ORDERED: NITROGLYCERIN 0.4 MG SL TAB SL PRN (11:30)
[2022-05-17] MEDS ORDERED: cefTRIAXone 1GM/50ML D5W 50 ML IV ONE (11:30)
[2022-05-17] MEDS ORDERED: DEXTROSE (50%) 50ML SYRG IV ONE ×3 (11:30→21:35)
[2022-05-17] MEDS ORDERED: MORPHINE SULFATE INJ 2 MG/ml SYRG IV PRN (11:30)
[2022-05-17] MEDS ORDERED: FUROSEMIDE 20 MG/2 ML VIAL IV ONE (11:30)
[2022-05-17] MEDS ORDERED: VANCOMYCIN PER PHARMACY 0 MG IV SCH (11:30)
[2022-05-17] MEDS ORDERED: InsuLIN REG 1unit/0.01ml Soln (100units/ml) IV ONE ×2 (11:30→12:45)
[2022-05-17] MEDS ORDERED: ALBUTEROL SULF 2.5 MG/0.5ML(0.5%) NEB SOLN NEB ONE (11:30)
[2022-05-17] MEDS: MIDAZOLAM DRIP 50 mg/50mL 50 ML IV SCH ×3 (11:39→16:22)
[2022-05-17] MEDS ORDERED: NOREPINEPHRINE 8 MG/250ML KIT 250 ML IV ONE (11:53)
[2022-05-17] MEDS: NOREPINEPHRINE 8 MG/250ML KIT 250 ML IV SCH (11:54)
[2022-05-17] MEDS ORDERED: PIPERACILLIN-TAZOB 3.375GM 100 ML IV ONE (12:00)
[2022-05-17] MEDS ORDERED: SODIUM BICARBONATE 8.4 % INJ 50ML VIAL IV ONE ×2 (12:10→12:45)
[2022-05-17] MEDS ORDERED: VANCOMYCIN 1GM/250ML 250 ML IV ONE (12:15)
[2022-05-17] MEDS ORDERED: CALCIUM CHLOR(10%) 100MG/ML 10ML SYRINGE IV ONE (12:20)
[2022-05-17] MEDS ORDERED: EPINEPHrine HCL 1 MG/10 ML SYRG IV ONE ×2 (12:20→21:35)
[2022-05-17] MEDS ORDERED: phytonadione 10 MG in SODIUM CHL 0.9% 50 ML IV ONE (13:00)
[2022-05-17] MEDS ORDERED: ALBUMIN 25% 100 ML IV ONE (14:45)
[2022-05-17 21:07] LABS: BUN/Creatinine Ratio 10.5; Calcium 9.2 mg/dL (8.5-10.1); Potassium 4.3 mmol/L (3.5-5.1)
[2022-05-17 22:11] LABS: Basophils # (auto) 0 10 ^3/uL (0-0.2); Basophils % (auto) 0.2 % (0.0-2.0); Eosinophils # (auto) 0 10 ^3/uL (0-0.8); Hematocrit 19.3 % (41.0-53.0); Mean Corpuscular Hgb Conc. 32.4 g/dL (32.0-36.0); Monocytes # (auto) 0.5 10 ^3/uL (0-1.3); Red Blood Cells 2.02 10^6/uL (4.5-5.90)
[2022-05-17 22:12] LABS: Lymphocytes # (auto) 0.4 10 ^3/uL (0.4-5.4); Lymphocytes % (auto) 3.7 % (10.0-50.0); Mean Corpuscular Hemoglobin 31.1 pg (28.0-32.0); Mean Corpuscular Volume 95.8 fL (80.0-100.0); Monocytes % (auto) 4.7 % (0.0-12.0); Neutrophils # (auto) 10.6 10 ^3/uL (1.6-8.6); Neutrophils % (auto) 91.4 % (37.0-80.0); Nucleated Red Blood Cells % 0.1 %; Red Cell Distribution Width 17.7 % (11.8-14.3); White Blood Cell 11.6 10^3/uL (4.4-10.8)
[2022-05-17 22:17] LABS: Hemoglobin 6.3 g/dL (13.5-17.5)
[2022-05-17] MEDS: PROPOFOL 100 ML IV SCH (22:30)
[2022-05-17] MEDS ORDERED: PHYTONADIONE (VIT K)10 MG/ML 1ML VIAL SUBCUT ONE (22:45)
[2022-05-17 22:50] LABS: INR 4.3 (0.9-1.15)
[2022-05-18] VITALS (23 sets, daily range): BP systolic 95–139; BP diastolic 42–57
[2022-05-18 05:09] LABS: INR 2.59 (0.9-1.15); Partial Thromboplastin Time 46.7 sec (24.6-33.4)
[2022-05-18 05:19] LABS: Albumin 2.9 g/dL (3.4-5.0); Potassium 4.4 mmol/L (3.5-5.1)
[2022-05-18 05:23] LABS: Mean Corpuscular Hemoglobin 31.2 pg (28.0-32.0)
[2022-05-18 05:24] LABS: BUN/Creatinine Ratio 10.6; Bilirubin, Total 0.8 mg/dL (0.2-1.0); Total Protein 5.3 g/dL (6.4-8.2)
[2022-05-18 05:28] LABS: Basophils # (auto) 0 10 ^3/uL (0-0.2); Basophils % (auto) 0.2 % (0.0-2.0); Eosinophils # (auto) 0 10 ^3/uL (0-0.8); Eosinophils % (auto) 0.2 % (0.0-7.0); Hematocrit 21.2 % (41.0-53.0); Lymphocytes # (auto) 0.5 10 ^3/uL (0.4-5.4); Lymphocytes % (auto) 4.9 % (10.0-50.0); Mean Corpuscular Hgb Conc. 33.1 g/dL (32.0-36.0); Monocytes # (auto) 0.4 10 ^3/uL (0-1.3); Monocytes % (auto) 3.5 % (0.0-12.0); Neutrophils # (auto) 9.4 10 ^3/uL (1.6-8.6); Neutrophils % (auto) 91.2 % (37.0-80.0); Nucleated Red Blood Cells % 0.2 %; Red Blood Cells 2.26 10^6/uL (4.5-5.90); Red Cell Distribution Width 17.2 % (11.8-14.3); White Blood Cell 10.3 10^3/uL (4.4-10.8)
[2022-05-18] MEDS: MIDAZOLAM DRIP 50 mg/50mL 50 ML IV SCH ×6 (05:31→22:42)
[2022-05-18] MEDS ORDERED: SODIUM CHL 0.9% 1000 ML BAG XX ONE (07:00)
[2022-05-18] MEDS: cefTRIAXone 1GM/50ML D5W 50 ML IV SCH (09:00)
[2022-05-18] MEDS ORDERED: IOHEXOL 350 MG/ML 100ML IJ ONE ×2 (10:44→18:06)
[2022-05-18] MEDS: PROPOFOL 100 ML IV SCH (11:15)
[2022-05-18] MEDS: fentaNYL Drip 2500mCg/250mlNS 250 ML IV SCH (11:15)
[2022-05-18] MEDS: NOREPINEPHRINE 8 MG/250ML KIT 250 ML IV SCH (11:54)
[2022-05-18 13:18] LABS: Basophils # (auto) 0 10 ^3/uL (0-0.2); Basophils % (auto) 0.5 % (0.0-2.0); Eosinophils # (auto) 0 10 ^3/uL (0-0.8); Eosinophils % (auto) 0.1 % (0.0-7.0); Hemoglobin 8.6 g/dL (13.5-17.5); Lymphocytes # (auto) 0.3 10 ^3/uL (0.4-5.4); Lymphocytes % (auto) 2.5 % (10.0-50.0); Mean Corpuscular Hemoglobin 32.1 pg (28.0-32.0); Mean Corpuscular Hgb Conc. 34.6 g/dL (32.0-36.0); Mean Corpuscular Volume 92.7 fL (80.0-100.0); Monocytes # (auto) 0.5 10 ^3/uL (0-1.3); Monocytes % (auto) 5.1 % (0.0-12.0); Neutrophils # (auto) 9.1 10 ^3/uL (1.6-8.6); Neutrophils % (auto) 91.8 % (37.0-80.0); Nucleated Red Blood Cells % 0.5 %; Red Blood Cells 2.69 10^6/uL (4.5-5.90); Red Cell Distribution Width 17.2 % (11.8-14.3); White Blood Cell 9.9 10^3/uL (4.4-10.8)
[2022-05-18 13:29] LABS: Albumin 2.9 g/dL (3.4-5.0); Magnesium 2.5 mg/dL (1.6-2.6); Potassium 3.6 mmol/L (3.5-5.1)
[2022-05-18 13:33] LABS: BUN/Creatinine Ratio 11.2; Bilirubin, Total 0.7 mg/dL (0.2-1.0)
[2022-05-18] MEDS: PANTOPRAZOLE 40mg/50ML NS AE 50 ML IV SCH ×2 (14:30→15:29)
[2022-05-18] MEDS ORDERED: VANCOMYCIN 1GM/250ML 250 ML IV ONE (17:00)
[2022-05-18] MEDS ORDERED: EPOETIN ALFA-EPBX 10,000 UNIT/1ML VIAL SC ONE (21:00)
[2022-05-19] VITALS (10 sets, daily range): BP systolic 119–143; BP diastolic 48–59
[2022-05-19] MEDS: PANTOPRAZOLE 40mg/50ML NS AE 50 ML IV SCH ×7 (00:09→22:01)
[2022-05-19] MEDS: MIDAZOLAM DRIP 50 mg/50mL 50 ML IV SCH (02:45)
[2022-05-19] MEDS: fentaNYL Drip 2500mCg/250mlNS 250 ML IV SCH (04:11)
[2022-05-19 05:08] LABS: Basophils # (auto) 0 10 ^3/uL (0-0.2); Basophils % (auto) 0.3 % (0.0-2.0); Eosinophils # (auto) 0 10 ^3/uL (0-0.8); Eosinophils % (auto) 0.2 % (0.0-7.0); Hemoglobin 9.6 g/dL (13.5-17.5); Lymphocytes # (auto) 0.3 10 ^3/uL (0.4-5.4); Mean Corpuscular Hemoglobin 31.5 pg (28.0-32.0); Mean Corpuscular Hgb Conc. 34.4 g/dL (32.0-36.0); Mean Corpuscular Volume 91.7 fL (80.0-100.0); Monocytes # (auto) 0.7 10 ^3/uL (0-1.3); Neutrophils # (auto) 8.3 10 ^3/uL (1.6-8.6); Neutrophils % (auto) 89.5 % (37.0-80.0); Nucleated Red Blood Cells % 0.4 %; Red Blood Cells 3.05 10^6/uL (4.5-5.90); White Blood Cell 9.3 10^3/uL (4.4-10.8)
[2022-05-19 05:22] LABS: Albumin 2.8 g/dL (3.4-5.0); Calcium 8.8 mg/dL (8.5-10.1); INR 1.51 (0.9-1.15); Potassium 4.3 mmol/L (3.5-5.1)
[2022-05-19 05:27] LABS: Bilirubin, Total 0.9 mg/dL (0.2-1.0); Total Protein 5.6 g/dL (6.4-8.2)
[2022-05-19 05:29] LABS: BUN/Creatinine Ratio 9.1
[2022-05-19] MEDS: cefTRIAXone 1GM/50ML D5W 50 ML IV SCH (09:30)
[2022-05-19] MEDS: PROPOFOL 100 ML IV SCH (11:15)
[2022-05-19] MEDS: NOREPINEPHRINE 8 MG/250ML KIT 250 ML IV SCH (13:34)
[2022-05-20] VITALS (82 sets, daily range): BP systolic 109–163; BP diastolic 46–68
[2022-05-20] MEDS: PANTOPRAZOLE 40mg/50ML NS AE 50 ML IV SCH ×5 (03:15→21:30)
[2022-05-20 04:28] LABS: Basophils # (auto) 0 10 ^3/uL (0-0.2); Basophils % (auto) 0.3 % (0.0-2.0); Eosinophils # (auto) 0.1 10 ^3/uL (0-0.8); Eosinophils % (auto) 1.6 % (0.0-7.0); Hematocrit 26.6 % (41.0-53.0); Lymphocytes # (auto) 0.5 10 ^3/uL (0.4-5.4); Lymphocytes % (auto) 5.6 % (10.0-50.0); Mean Corpuscular Hemoglobin 31.6 pg (28.0-32.0); Mean Corpuscular Hgb Conc. 33.9 g/dL (32.0-36.0); Mean Corpuscular Volume 93.2 fL (80.0-100.0); Monocytes # (auto) 0.7 10 ^3/uL (0-1.3); Monocytes % (auto) 8.9 % (0.0-12.0); Neutrophils % (auto) 83.6 % (37.0-80.0); Nucleated Red Blood Cells % 0.5 %; Red Blood Cells 2.85 10^6/uL (4.5-5.90); Red Cell Distribution Width 17.8 % (11.8-14.3); White Blood Cell 8.3 10^3/uL (4.4-10.8)
[2022-05-20 04:58] LABS: Chloride 100 mmol/L (98-107); Potassium 4.9 mmol/L (3.5-5.1); Sodium 139 mmol/L (136-145)
[2022-05-20 05:04] LABS: Anion Gap 14 (5-15); BUN/Creatinine Ratio 8.6; Calcium 8.9 mg/dL (8.5-10.1); Carbon Dioxide 25 mmol/L (21-32); GFR African American 7 mL/min; GFR Non-African American 6 mL/min; Glucose 125 mg/dL (74-106)
[2022-05-20 05:08] LABS: Blood Urea Nitrogen 81 mg/dL (7-18)
[2022-05-20] MEDS ORDERED: SODIUM CHL 0.9% 1000 ML BAG XX ONE (07:00)
[2022-05-20] MEDS: MIDAZOLAM DRIP 50 mg/50mL 50 ML IV SCH (07:17)
[2022-05-20] MEDS: cefTRIAXone 1GM/50ML D5W 50 ML IV SCH (09:40)
[2022-05-20] MEDS: fentaNYL Drip 2500mCg/250mlNS 250 ML IV SCH (11:15)
[2022-05-20] MEDS: PROPOFOL 100 ML IV SCH (11:15)
[2022-05-20] MEDS: NOREPINEPHRINE 8 MG/250ML KIT 250 ML IV SCH (11:54)
[2022-05-20] MEDS ORDERED: VANCOMYCIN 1GM/250ML 250 ML IV ONE (17:00)
[2022-05-20] MEDS ORDERED: CLON0.1T PO (17:54)
[2022-05-20] MEDS ORDERED: DOCU100T15 PO (17:54)
[2022-05-20] MEDS ORDERED: EPOETIN ALFA-EPBX 10,000 UNIT/1ML VIAL SC ONE (21:00)
[2022-05-20] MEDS: HEPARIN SODIUM (PORCINE) 5000 UNITS/ML 1ML VIAL SC SCH (22:00)
[2022-05-21] VITALS (106 sets, daily range): BP systolic 120–165; BP diastolic 45–63
[2022-05-21] MEDS: PANTOPRAZOLE 40mg/50ML NS AE 50 ML IV SCH ×6 (00:44→22:14)
[2022-05-21 03:40] LABS: Basophils # (auto) 0 10 ^3/uL (0-0.2); Basophils % (auto) 0.4 % (0.0-2.0); Eosinophils # (auto) 0.1 10 ^3/uL (0-0.8); Eosinophils % (auto) 2.3 % (0.0-7.0); Hematocrit 27.5 % (41.0-53.0); Hemoglobin 9.1 g/dL (13.5-17.5); Lymphocytes # (auto) 0.4 10 ^3/uL (0.4-5.4); Lymphocytes % (auto) 6.1 % (10.0-50.0); Mean Corpuscular Hemoglobin 31.3 pg (28.0-32.0); Mean Corpuscular Hgb Conc. 33.2 g/dL (32.0-36.0); Mean Corpuscular Volume 94.3 fL (80.0-100.0); Monocytes # (auto) 0.5 10 ^3/uL (0-1.3); Monocytes % (auto) 8.9 % (0.0-12.0); Neutrophils % (auto) 82.3 % (37.0-80.0); Nucleated Red Blood Cells % 0.4 %; Red Blood Cells 2.92 10^6/uL (4.5-5.90); Red Cell Distribution Width 17.1 % (11.8-14.3)
[2022-05-21 04:02] LABS: BUN/Creatinine Ratio 7.4; Calcium 9.4 mg/dL (8.5-10.1); Potassium 4.3 mmol/L (3.5-5.1)
[2022-05-21] MEDS: HEPARIN SODIUM (PORCINE) 5000 UNITS/ML 1ML VIAL SC SCH ×2 (09:30→21:41)
[2022-05-21] MEDS: cefTRIAXone 1GM/50ML D5W 50 ML IV SCH (09:31)
[2022-05-21] MEDS ORDERED: ENOXAPARIN SOD 30 MG/0.3 ML SYRINGE SC SCH (10:00)
[2022-05-21] MEDS: PROPOFOL 100 ML IV SCH (11:15)
[2022-05-21] MEDS: fentaNYL Drip 2500mCg/250mlNS 250 ML IV SCH (11:15)
[2022-05-21] MEDS: MIDAZOLAM DRIP 50 mg/50mL 50 ML IV SCH (11:15)
[2022-05-21] MEDS: NOREPINEPHRINE 8 MG/250ML KIT 250 ML IV SCH (11:54)
[2022-05-22] VITALS (106 sets, daily range): BP systolic 119–181; BP diastolic 40–67
[2022-05-22] MEDS: PANTOPRAZOLE 40mg/50ML NS AE 50 ML IV SCH ×3 (01:54→13:30)
[2022-05-22] MEDS: hydrALAZINE HCL 20 MG/ML VL IV PRN ×2 (02:34→17:40)
[2022-05-22 04:19] LABS: Basophils # (auto) 0 10 ^3/uL (0-0.2); Basophils % (auto) 0.6 % (0.0-2.0); Eosinophils # (auto) 0.2 10 ^3/uL (0-0.8); Eosinophils % (auto) 2.4 % (0.0-7.0); Hematocrit 30.2 % (41.0-53.0); Hemoglobin 9.8 g/dL (13.5-17.5); Lymphocytes # (auto) 0.4 10 ^3/uL (0.4-5.4); Lymphocytes % (auto) 5.1 % (10.0-50.0); Mean Corpuscular Hemoglobin 30.7 pg (28.0-32.0); Mean Corpuscular Hgb Conc. 32.6 g/dL (32.0-36.0); Mean Corpuscular Volume 94.3 fL (80.0-100.0); Monocytes # (auto) 0.8 10 ^3/uL (0-1.3); Monocytes % (auto) 10.5 % (0.0-12.0); Neutrophils # (auto) 6.2 10 ^3/uL (1.6-8.6); Neutrophils % (auto) 81.4 % (37.0-80.0); Nucleated Red Blood Cells % 0.1 %; Red Cell Distribution Width 16.8 % (11.8-14.3); White Blood Cell 7.6 10^3/uL (4.4-10.8)
[2022-05-22 05:25] LABS: BUN/Creatinine Ratio 7.1; Calcium 9.6 mg/dL (8.5-10.1); Potassium 4.6 mmol/L (3.5-5.1)
[2022-05-22] MEDS: cefTRIAXone 1GM/50ML D5W 50 ML IV SCH (10:06)
[2022-05-22] MEDS: HEPARIN SODIUM (PORCINE) 5000 UNITS/ML 1ML VIAL SC SCH ×2 (10:08→21:46)
[2022-05-22] MEDS: fentaNYL Drip 2500mCg/250mlNS 250 ML IV SCH (11:15)
[2022-05-22] MEDS: MIDAZOLAM DRIP 50 mg/50mL 50 ML IV SCH (11:15)
[2022-05-22] MEDS: PROPOFOL 100 ML IV SCH (11:15)
[2022-05-22] MEDS: NOREPINEPHRINE 8 MG/250ML KIT 250 ML IV SCH (11:54)
[2022-05-22] MEDS: PANTOPRAZOLE 40 MG/10 ML VIAL INJ IV SCH (21:46)
[2022-05-23] VITALS (106 sets, daily range): BP systolic 96–179; BP diastolic 44–92
[2022-05-23] MEDS: hydrALAZINE HCL 20 MG/ML VL IV PRN ×2 (04:13→23:49)
[2022-05-23 04:31] LABS: Basophils # (auto) 0 10 ^3/uL (0-0.2); Basophils % (auto) 0.4 % (0.0-2.0); Eosinophils # (auto) 0.2 10 ^3/uL (0-0.8); Eosinophils % (auto) 2.4 % (0.0-7.0); Hemoglobin 10.7 g/dL (13.5-17.5); Lymphocytes # (auto) 0.5 10 ^3/uL (0.4-5.4); Lymphocytes % (auto) 6.6 % (10.0-50.0); Mean Corpuscular Hemoglobin 30.9 pg (28.0-32.0); Mean Corpuscular Hgb Conc. 33.3 g/dL (32.0-36.0); Mean Corpuscular Volume 92.8 fL (80.0-100.0); Monocytes % (auto) 12.9 % (0.0-12.0); Neutrophils # (auto) 5.8 10 ^3/uL (1.6-8.6); Neutrophils % (auto) 77.7 % (37.0-80.0); Nucleated Red Blood Cells % 0.1 %; Red Blood Cells 3.45 10^6/uL (4.5-5.90); Red Cell Distribution Width 17.4 % (11.8-14.3); White Blood Cell 7.5 10^3/uL (4.4-10.8)
[2022-05-23 04:35] LABS: Potassium 5.1 mmol/L (3.5-5.1)
[2022-05-23 04:39] LABS: BUN/Creatinine Ratio 7.2
[2022-05-23] MEDS ORDERED: SODIUM CHL 0.9% 1000 ML BAG XX ONE (07:00)
[2022-05-23] MEDS: PANTOPRAZOLE 40 MG/10 ML VIAL INJ IV SCH ×2 (10:16→21:30)
[2022-05-23] MEDS: cefTRIAXone 1GM/50ML D5W 50 ML IV SCH (10:16)
[2022-05-23] MEDS: HEPARIN SODIUM (PORCINE) 5000 UNITS/ML 1ML VIAL SC SCH ×2 (10:18→21:30)
[2022-05-23] MEDS: MIDAZOLAM DRIP 50 mg/50mL 50 ML IV SCH (11:15)
[2022-05-23] MEDS: fentaNYL Drip 2500mCg/250mlNS 250 ML IV SCH (11:15)
[2022-05-23] MEDS: PROPOFOL 100 ML IV SCH (11:15)
[2022-05-23] MEDS: NOREPINEPHRINE 8 MG/250ML KIT 250 ML IV SCH (11:26)
[2022-05-23] MEDS: ALBUMIN 25% 100 ML IV SCH ×2 (15:00→16:01)
[2022-05-23] MEDS: NYSTATIN (MOUTH-THROAT) 500,000 UNITS/5 ML SUSP MT SCH ×2 (18:39→21:30)
[2022-05-23] MEDS ORDERED: EPOETIN ALFA-EPBX 10,000 UNIT/1ML VIAL SC ONE (21:00)
[2022-05-24] VITALS (97 sets, daily range): BP systolic 103–175; BP diastolic 43–64
[2022-05-24 04:08] LABS: Basophils # (auto) 0 10 ^3/uL (0-0.2); Basophils % (auto) 0.5 % (0.0-2.0); Eosinophils # (auto) 0.2 10 ^3/uL (0-0.8); Eosinophils % (auto) 2.1 % (0.0-7.0); Hematocrit 31.5 % (41.0-53.0); Hemoglobin 10.3 g/dL (13.5-17.5); Lymphocytes # (auto) 0.4 10 ^3/uL (0.4-5.4); Lymphocytes % (auto) 4.7 % (10.0-50.0); Mean Corpuscular Hemoglobin 31.1 pg (28.0-32.0); Mean Corpuscular Hgb Conc. 32.9 g/dL (32.0-36.0); Mean Corpuscular Volume 94.7 fL (80.0-100.0); Monocytes % (auto) 11.2 % (0.0-12.0); Neutrophils # (auto) 6.9 10 ^3/uL (1.6-8.6); Neutrophils % (auto) 81.5 % (37.0-80.0); Nucleated Red Blood Cells % 0.1 %; Red Blood Cells 3.32 10^6/uL (4.5-5.90); Red Cell Distribution Width 17.1 % (11.8-14.3); White Blood Cell 8.5 10^3/uL (4.4-10.8)
[2022-05-24 04:22] LABS: Calcium 10.4 mg/dL (8.5-10.1); Potassium 4.5 mmol/L (3.5-5.1)
[2022-05-24 04:24] LABS: BUN/Creatinine Ratio 6.3
[2022-05-24] MEDS: hydrALAZINE HCL 20 MG/ML VL IV PRN ×3 (05:30→17:59)
[2022-05-24] MEDS: NYSTATIN (MOUTH-THROAT) 500,000 UNITS/5 ML SUSP MT SCH ×4 (05:30→21:41)
[2022-05-24] MEDS: PANTOPRAZOLE 40 MG/10 ML VIAL INJ IV SCH ×2 (09:05→21:41)
[2022-05-24] MEDS: cefTRIAXone 1GM/50ML D5W 50 ML IV SCH (09:07)
[2022-05-24] MEDS: HEPARIN SODIUM (PORCINE) 5000 UNITS/ML 1ML VIAL SC SCH ×2 (09:08→21:42)
[2022-05-24] MEDS ORDERED: Nepro With Carb Steady 1 Liter Bottle GT SCH (10:45)
[2022-05-24] MEDS: PROPOFOL 100 ML IV SCH (11:15)
[2022-05-24] MEDS: MIDAZOLAM DRIP 50 mg/50mL 50 ML IV SCH (11:15)
[2022-05-24] MEDS: fentaNYL Drip 2500mCg/250mlNS 250 ML IV SCH (11:15)
[2022-05-24] MEDS: NOREPINEPHRINE 8 MG/250ML KIT 250 ML IV SCH (11:54)
[2022-05-25] VITALS (92 sets, daily range): BP systolic 117–189; BP diastolic 46–64
[2022-05-25] MEDS: hydrALAZINE HCL 20 MG/ML VL IV PRN (00:36)
[2022-05-25 03:57] LABS: Basophils # (auto) 0 10 ^3/uL (0-0.2); Basophils % (auto) 0.7 % (0.0-2.0); Eosinophils # (auto) 0.2 10 ^3/uL (0-0.8); Eosinophils % (auto) 3.4 % (0.0-7.0); Hemoglobin 10.4 g/dL (13.5-17.5); Lymphocytes # (auto) 0.5 10 ^3/uL (0.4-5.4); Lymphocytes % (auto) 7.2 % (10.0-50.0); Mean Corpuscular Hemoglobin 31.3 pg (28.0-32.0); Mean Corpuscular Hgb Conc. 33.5 g/dL (32.0-36.0); Mean Corpuscular Volume 93.6 fL (80.0-100.0); Monocytes # (auto) 0.9 10 ^3/uL (0-1.3); Monocytes % (auto) 13.4 % (0.0-12.0); Neutrophils # (auto) 4.9 10 ^3/uL (1.6-8.6); Neutrophils % (auto) 75.3 % (37.0-80.0); Nucleated Red Blood Cells % 0.2 %; Red Blood Cells 3.31 10^6/uL (4.5-5.90); Red Cell Distribution Width 17.1 % (11.8-14.3); White Blood Cell 6.5 10^3/uL (4.4-10.8)
[2022-05-25 04:12] LABS: BUN/Creatinine Ratio 6.3; Calcium 9.3 mg/dL (8.5-10.1); Potassium 4.7 mmol/L (3.5-5.1)
[2022-05-25] MEDS: NYSTATIN (MOUTH-THROAT) 500,000 UNITS/5 ML SUSP MT SCH ×4 (05:50→22:00)
[2022-05-25] MEDS ORDERED: SODIUM CHL 0.9% 1000 ML BAG XX ONE (07:00)
[2022-05-25] MEDS: PANTOPRAZOLE 40 MG/10 ML VIAL INJ IV SCH ×2 (09:34→22:00)
[2022-05-25] MEDS: HEPARIN SODIUM (PORCINE) 5000 UNITS/ML 1ML VIAL SC SCH ×2 (09:35→22:00)
[2022-05-25] MEDS: cefTRIAXone 1GM/50ML D5W 50 ML IV SCH (09:35)
[2022-05-25] MEDS: PROPOFOL 100 ML IV SCH (11:15)
[2022-05-25] MEDS: MIDAZOLAM DRIP 50 mg/50mL 50 ML IV SCH (11:15)
[2022-05-25] MEDS: fentaNYL Drip 2500mCg/250mlNS 250 ML IV SCH (11:15)
[2022-05-25] MEDS: NOREPINEPHRINE 8 MG/250ML KIT 250 ML IV SCH (11:54)
[2022-05-25] MEDS ORDERED: VANCOMYCIN 500 MG in D5W 5% 100 ML IV ONE (16:00)
[2022-05-25] MEDS ORDERED: EPOETIN ALFA-EPBX 10,000 UNIT/1ML VIAL SC ONE (21:00)
[2022-05-26] VITALS (58 sets, daily range): BP systolic 131–178; BP diastolic 46–63
[2022-05-26 03:45] LABS: Basophils # (auto) 0 10 ^3/uL (0-0.2); Basophils % (auto) 0.6 % (0.0-2.0); Eosinophils # (auto) 0.3 10 ^3/uL (0-0.8); Eosinophils % (auto) 3.9 % (0.0-7.0); Hematocrit 34.6 % (41.0-53.0); Hemoglobin 11.4 g/dL (13.5-17.5); Lymphocytes # (auto) 0.5 10 ^3/uL (0.4-5.4); Mean Corpuscular Hemoglobin 30.9 pg (28.0-32.0); Mean Corpuscular Volume 93.6 fL (80.0-100.0); Monocytes # (auto) 0.9 10 ^3/uL (0-1.3); Neutrophils # (auto) 5.6 10 ^3/uL (1.6-8.6); Neutrophils % (auto) 76.5 % (37.0-80.0); Nucleated Red Blood Cells % 0.1 %; Red Blood Cells 3.69 10^6/uL (4.5-5.90); Red Cell Distribution Width 17.3 % (11.8-14.3); White Blood Cell 7.3 10^3/uL (4.4-10.8)
[2022-05-26 03:58] LABS: Calcium 9.9 mg/dL (8.5-10.1); Potassium 4.6 mmol/L (3.5-5.1)
[2022-05-26] MEDS: NYSTATIN (MOUTH-THROAT) 500,000 UNITS/5 ML SUSP MT SCH ×4 (05:22→22:05)
[2022-05-26] MEDS: cefTRIAXone 1GM/50ML D5W 50 ML IV SCH (08:42)
[2022-05-26] MEDS: PANTOPRAZOLE 40 MG/10 ML VIAL INJ IV SCH ×2 (09:46→22:06)
[2022-05-26] MEDS: HEPARIN SODIUM (PORCINE) 5000 UNITS/ML 1ML VIAL SC SCH ×2 (09:48→22:07)
[2022-05-26] MEDS: PROPOFOL 100 ML IV SCH (11:15)
[2022-05-26] MEDS: MIDAZOLAM DRIP 50 mg/50mL 50 ML IV SCH (11:15)
[2022-05-26] MEDS: fentaNYL Drip 2500mCg/250mlNS 250 ML IV SCH (11:15)
[2022-05-26] MEDS: NOREPINEPHRINE 8 MG/250ML KIT 250 ML IV SCH (11:54)
[2022-05-26] MEDS: hydrALAZINE HCL 20 MG/ML VL IV PRN ×2 (11:57→18:11)
[2022-05-26] MEDS: LACTULOSE 20Gm/30ML SOLN PO SCH (22:06)
[2022-05-27] VITALS (58 sets, daily range): BP systolic 94–181; BP diastolic 44–63
[2022-05-27] MEDS: hydrALAZINE HCL 20 MG/ML VL IV PRN (00:22)
[2022-05-27] MEDS ORDERED: hydrALAZINE HCL 20 MG/ML VL IV ONE (02:30)
[2022-05-27 04:06] LABS: Basophils # (auto) 0.1 10 ^3/uL (0-0.2); Basophils % (auto) 0.9 % (0.0-2.0); Eosinophils # (auto) 0.2 10 ^3/uL (0-0.8); Eosinophils % (auto) 2.1 % (0.0-7.0); Hematocrit 37.4 % (41.0-53.0); Hemoglobin 12.3 g/dL (13.5-17.5); Lymphocytes # (auto) 0.4 10 ^3/uL (0.4-5.4); Lymphocytes % (auto) 5.2 % (10.0-50.0); Mean Corpuscular Hemoglobin 30.7 pg (28.0-32.0); Mean Corpuscular Hgb Conc. 32.9 g/dL (32.0-36.0); Mean Corpuscular Volume 93.5 fL (80.0-100.0); Neutrophils # (auto) 6.6 10 ^3/uL (1.6-8.6); Neutrophils % (auto) 79.8 % (37.0-80.0); Nucleated Red Blood Cells % 0.1 %; Red Cell Distribution Width 17.8 % (11.8-14.3); White Blood Cell 8.2 10^3/uL (4.4-10.8)
[2022-05-27 04:25] LABS: Calcium 9.7 mg/dL (8.5-10.1); Potassium 4.6 mmol/L (3.5-5.1)
[2022-05-27 04:27] LABS: BUN/Creatinine Ratio 6.4
[2022-05-27] MEDS: NYSTATIN (MOUTH-THROAT) 500,000 UNITS/5 ML SUSP MT SCH ×4 (05:54→22:26)
[2022-05-27] MEDS ORDERED: SODIUM CHL 0.9% 1000 ML BAG XX ONE (07:00)
[2022-05-27] MEDS: cefTRIAXone 1GM/50ML D5W 50 ML IV SCH (09:18)
[2022-05-27] MEDS: fentaNYL Drip 2500mCg/250mlNS 250 ML IV SCH (11:15)
[2022-05-27] MEDS: PROPOFOL 100 ML IV SCH (11:15)
[2022-05-27] MEDS: MIDAZOLAM DRIP 50 mg/50mL 50 ML IV SCH (11:15)
[2022-05-27] MEDS: NOREPINEPHRINE 8 MG/250ML KIT 250 ML IV SCH (12:00)
[2022-05-27] MEDS: HEPARIN SODIUM (PORCINE) 5000 UNITS/ML 1ML VIAL SC SCH ×2 (14:29→22:20)
[2022-05-27] MEDS: LACTULOSE 20Gm/30ML SOLN PO SCH ×2 (14:29→22:00)
[2022-05-27] MEDS: PANTOPRAZOLE 40 MG/10 ML VIAL INJ IV SCH ×2 (14:29→22:19)
[2022-05-27] MEDS ORDERED: VANCOMYCIN 500 MG in D5W 5% 100 ML IV ONE (17:00)
[2022-05-27] MEDS ORDERED: EPOETIN ALFA-EPBX 4,000 UNIT/ML VIAL SC ONE (21:00)
[2022-05-28] VITALS (50 sets, daily range): BP systolic 131–178; BP diastolic 44–83
[2022-05-28 03:50] LABS: Basophils # (auto) 0 10 ^3/uL (0-0.2); Basophils % (auto) 0.4 % (0.0-2.0); Eosinophils # (auto) 0.2 10 ^3/uL (0-0.8); Eosinophils % (auto) 2.2 % (0.0-7.0); Hematocrit 36.2 % (41.0-53.0); Lymphocytes # (auto) 0.5 10 ^3/uL (0.4-5.4); Mean Corpuscular Hemoglobin 31.1 pg (28.0-32.0); Mean Corpuscular Hgb Conc. 33.2 g/dL (32.0-36.0); Mean Corpuscular Volume 93.5 fL (80.0-100.0); Monocytes % (auto) 10.9 % (0.0-12.0); Neutrophils # (auto) 7.6 10 ^3/uL (1.6-8.6); Neutrophils % (auto) 81.5 % (37.0-80.0); Nucleated Red Blood Cells % 0.6 %; Red Blood Cells 3.87 10^6/uL (4.5-5.90); Red Cell Distribution Width 17.7 % (11.8-14.3); White Blood Cell 9.3 10^3/uL (4.4-10.8)
[2022-05-28] MEDS: hydrALAZINE HCL 20 MG/ML VL IV PRN ×2 (03:51→16:22)
[2022-05-28 04:20] LABS: Calcium 10.1 mg/dL (8.5-10.1); Potassium 4.4 mmol/L (3.5-5.1)
[2022-05-28 04:22] LABS: BUN/Creatinine Ratio 6.4
[2022-05-28] MEDS: NYSTATIN (MOUTH-THROAT) 500,000 UNITS/5 ML SUSP MT SCH ×4 (07:24→19:55)
[2022-05-28] MEDS: HEPARIN SODIUM (PORCINE) 5000 UNITS/ML 1ML VIAL SC SCH ×2 (10:00→19:49)
[2022-05-28] MEDS: LACTULOSE 20Gm/30ML SOLN PO SCH ×2 (10:00→19:48)
[2022-05-28] MEDS: fentaNYL Drip 2500mCg/250mlNS 250 ML IV SCH (11:15)
[2022-05-28] MEDS: MIDAZOLAM DRIP 50 mg/50mL 50 ML IV SCH (11:15)
[2022-05-28] MEDS: PROPOFOL 100 ML IV SCH (11:15)
[2022-05-28] MEDS: PANTOPRAZOLE 40 MG/10 ML VIAL INJ IV SCH ×2 (11:36→19:55)
[2022-05-28] MEDS: cefTRIAXone 1GM/50ML D5W 50 ML IV SCH (11:37)
[2022-05-28] MEDS: NOREPINEPHRINE 8 MG/250ML KIT 250 ML IV SCH (11:54)
[2022-05-28] MEDS: hydrALAZINE HCL 25 MG TAB PO SCH ×2 (14:00→19:49)
[2022-05-29] VITALS (38 sets, daily range): BP systolic 109–197; BP diastolic 46–65
[2022-05-29] MEDS: hydrALAZINE HCL 20 MG/ML VL IV PRN ×2 (00:44→18:51)
[2022-05-29] MEDS ORDERED: MORPHINE SULFATE INJ 2 MG/ml SYRG IV PRN (02:00)
[2022-05-29 03:52] LABS: Basophils # (auto) 0.1 10 ^3/uL (0-0.2); Basophils % (auto) 0.6 % (0.0-2.0); Eosinophils # (auto) 0.1 10 ^3/uL (0-0.8); Eosinophils % (auto) 1.4 % (0.0-7.0); Hematocrit 36.4 % (41.0-53.0); Hemoglobin 12.1 g/dL (13.5-17.5); Lymphocytes # (auto) 0.4 10 ^3/uL (0.4-5.4); Lymphocytes % (auto) 4.6 % (10.0-50.0); Mean Corpuscular Hemoglobin 31.1 pg (28.0-32.0); Mean Corpuscular Hgb Conc. 33.2 g/dL (32.0-36.0); Mean Corpuscular Volume 93.7 fL (80.0-100.0); Monocytes % (auto) 10.6 % (0.0-12.0); Neutrophils # (auto) 7.8 10 ^3/uL (1.6-8.6); Neutrophils % (auto) 82.8 % (37.0-80.0); Nucleated Red Blood Cells % 0.1 %; Red Blood Cells 3.88 10^6/uL (4.5-5.90); Red Cell Distribution Width 17.5 % (11.8-14.3); White Blood Cell 9.4 10^3/uL (4.4-10.8)
[2022-05-29 04:07] LABS: BUN/Creatinine Ratio 6.8; Calcium 10.4 mg/dL (8.5-10.1); Potassium 5.1 mmol/L (3.5-5.1)
[2022-05-29] MEDS: NYSTATIN (MOUTH-THROAT) 500,000 UNITS/5 ML SUSP MT SCH ×4 (05:06→22:01)
[2022-05-29] MEDS: hydrALAZINE HCL 25 MG TAB PO SCH ×3 (05:07→22:02)
[2022-05-29] MEDS: PANTOPRAZOLE 40 MG/10 ML VIAL INJ IV SCH ×2 (09:20→22:01)
[2022-05-29] MEDS: cefTRIAXone 1GM/50ML D5W 50 ML IV SCH (09:20)
[2022-05-29] MEDS: LACTULOSE 20Gm/30ML SOLN PO SCH ×2 (09:20→22:00)
[2022-05-29] MEDS: HEPARIN SODIUM (PORCINE) 5000 UNITS/ML 1ML VIAL SC SCH ×2 (09:21→22:03)
[2022-05-29] MEDS: PROPOFOL 100 ML IV SCH (11:15)
[2022-05-29] MEDS: MIDAZOLAM DRIP 50 mg/50mL 50 ML IV SCH (11:15)
[2022-05-29] MEDS: fentaNYL Drip 2500mCg/250mlNS 250 ML IV SCH (11:15)
[2022-05-29] MEDS: NOREPINEPHRINE 8 MG/250ML KIT 250 ML IV SCH (11:54)
[2022-05-30] VITALS (21 sets, daily range): BP systolic 101–159; BP diastolic 33–96
[2022-05-30 04:05] LABS: Basophils # (auto) 0.1 10 ^3/uL (0-0.2); Basophils % (auto) 0.6 % (0.0-2.0); Eosinophils # (auto) 0.2 10 ^3/uL (0-0.8); Eosinophils % (auto) 1.3 % (0.0-7.0); Hematocrit 36.1 % (41.0-53.0); Hemoglobin 11.6 g/dL (13.5-17.5); Lymphocytes # (auto) 0.6 10 ^3/uL (0.4-5.4); Lymphocytes % (auto) 4.1 % (10.0-50.0); Mean Corpuscular Hemoglobin 30.1 pg (28.0-32.0); Mean Corpuscular Volume 94.1 fL (80.0-100.0); Monocytes # (auto) 1.1 10 ^3/uL (0-1.3); Monocytes % (auto) 8.3 % (0.0-12.0); Neutrophils # (auto) 11.6 10 ^3/uL (1.6-8.6); Neutrophils % (auto) 85.7 % (37.0-80.0); Red Blood Cells 3.84 10^6/uL (4.5-5.90); Red Cell Distribution Width 17.8 % (11.8-14.3); White Blood Cell 13.5 10^3/uL (4.4-10.8)
[2022-05-30 04:20] LABS: Albumin 3.1 g/dL (3.4-5.0); Calcium 9.6 mg/dL (8.5-10.1); Potassium 5.5 mmol/L (3.5-5.1)
[2022-05-30 04:25] LABS: INR 1.18 (0.9-1.15); Partial Thromboplastin Time 29.1 sec (24.6-33.4)
[2022-05-30 04:26] LABS: BUN/Creatinine Ratio 6.7; Bilirubin, Total 0.9 mg/dL (0.2-1.0); Total Protein 6.8 g/dL (6.4-8.2)
[2022-05-30] MEDS: NYSTATIN (MOUTH-THROAT) 500,000 UNITS/5 ML SUSP MT SCH ×4 (06:29→22:29)
[2022-05-30] MEDS: hydrALAZINE HCL 25 MG TAB PO SCH ×3 (06:30→22:00)
[2022-05-30] MEDS: PANTOPRAZOLE 40 MG/10 ML VIAL INJ IV SCH ×2 (09:18→22:28)
[2022-05-30] MEDS: cefTRIAXone 1GM/50ML D5W 50 ML IV SCH (09:18)
[2022-05-30] MEDS: NOREPINEPHRINE 8 MG/250ML KIT 250 ML IV SCH (09:19)
[2022-05-30] MEDS: HEPARIN SODIUM (PORCINE) 5000 UNITS/ML 1ML VIAL SC SCH ×2 (09:19→22:40)
[2022-05-30] MEDS: LACTULOSE 20Gm/30ML SOLN PO SCH ×2 (09:57→22:00)
[2022-05-30] MEDS ORDERED: WARFARIN SODIUM 2 MG TAB PO ONE (17:00)
[2022-05-30] MEDS ORDERED: VANCOMYCIN 500 MG in D5W 5% 100 ML IV ONE (18:00)
[2022-05-31] VITALS (8 sets, daily range): BP systolic 60–154; BP diastolic 29–49
[2022-05-31] MEDS: NYSTATIN (MOUTH-THROAT) 500,000 UNITS/5 ML SUSP MT SCH ×3 (05:53→16:51)
[2022-05-31] MEDS: hydrALAZINE HCL 25 MG TAB PO SCH ×2 (05:53→14:00)
[2022-05-31 06:39] LABS: INR 1.12 (0.9-1.15); Partial Thromboplastin Time 33.9 sec (24.6-33.4)
[2022-05-31] MEDS: cefTRIAXone 1GM/50ML D5W 50 ML IV SCH (09:00)
[2022-05-31] MEDS: LACTULOSE 20Gm/30ML SOLN PO SCH (10:00)
[2022-05-31] MEDS: PANTOPRAZOLE 40 MG/10 ML VIAL INJ IV SCH (11:18)
[2022-05-31] MEDS: HEPARIN SODIUM (PORCINE) 5000 UNITS/ML 1ML VIAL SC SCH (11:19)
[2022-05-31] MEDS ORDERED: CLINIMIX PER PHARMACY 0 ML IV SCH (16:15)
[2022-05-31] MEDS ORDERED: WARFARIN SODIUM 1 MG TAB PO ONE (17:00)
[2022-05-31] MEDS ORDERED: NOREPINEPHRINE 8 MG/250ML KIT 250 ML IV SCH (18:15)
[2022-05-31] MEDS ORDERED: fentaNYL Drip 2500mCg/250mlNS 250 ML IV SCH (18:15)
[2022-05-31] MEDS ORDERED: NOREPINEPHRINE 8 MG/250ML KIT 250 ML IV ONE (18:41)
[2022-05-31] MEDS ORDERED: PHENYLEPHRINE IV 250 ML IV ONE (18:57)
[2022-05-31] MEDS ORDERED: PHENYLEPHRINE IV 250 ML IV SCH (19:00)
[2022-05-31] MEDS ORDERED: CATHFLO ACTIVASE (ALTEPLASE) 2 MG VIAL IV ONE (19:15)
[2022-05-31] MEDS ORDERED: EPINEPHrine HCL 250 ML IV SCH (19:45)
[2022-05-31] MEDS ORDERED: VASOPRESSIN 20 UNITS in SODIUM CHL 0.9% 99 ML IV SCH (19:45)
[2022-05-31] MEDS ORDERED: EPINEPHrine HCL 250 ML IV ONE (19:48)
[2022-06-01] MEDS ORDERED: EPINEPHrine HCL 1 MG/10 ML SYRG IV ONE (02:29)
[2022-06-01] MEDS ORDERED: SODIUM BICARBONATE 8.4% INJ 50ML SYRINGE IV ONE (02:29)
[2022-06-01] MEDS ORDERED: SODIUM CHL 0.9% 1000 ML BAG XX ONE (07:00)
== END 2022-06-01 02:30 | DRG 870 ==
LOC: ER 08:23 → TELE 11:30 → ICU WEST 05-20 06:19 → TELE-CENTR 05-30 18:02 → ICU CENTRL 05-31 18:32
PROVIDERS: ADMIT Nurse Practitioner Family; ATTEND Internal Medicine
PROC: 5A1955Z Respiratory Ventilation, Greater than 96 Consecutive Hours (ICD-10-PCS; principal; 2022-05-17)
PROC: 0BH17EZ Insertion of Endotracheal Airway into Trachea, Via Natural or Artificial Opening (ICD-10-PCS; 2022-05-17)
PROC: 5A1D70Z Performance of Urinary Filtration, Intermittent, Less than 6 Hours Per Day (ICD-10-PCS; 2022-05-17)
PROC: 30233P1 Transfusion of Nonautologous Frozen Red Cells into Peripheral Vein, Percutaneous Approach (ICD-10-PCS; 2022-05-17)
PROC: 5A1D70Z Performance of Urinary Filtration, Intermittent, Less than 6 Hours Per Day (ICD-10-PCS; 2022-05-18)
PROC: 30233N1 Transfusion of Nonautologous Red Blood Cells into Peripheral Vein, Percutaneous Approach (ICD-10-PCS; 2022-05-18)
PROC: 5A1D70Z Performance of Urinary Filtration, Intermittent, Less than 6 Hours Per Day (ICD-10-PCS; 2022-05-20)
PROC: 5A1D70Z Performance of Urinary Filtration, Intermittent, Less than 6 Hours Per Day (ICD-10-PCS; 2022-05-23)
PROC: 5A1D70Z Performance of Urinary Filtration, Intermittent, Less than 6 Hours Per Day (ICD-10-PCS; 2022-05-24)
PROC: 5A1D70Z Performance of Urinary Filtration, Intermittent, Less than 6 Hours Per Day (ICD-10-PCS; 2022-05-27)
PROC: 5A1D70Z Performance of Urinary Filtration, Intermittent, Less than 6 Hours Per Day (ICD-10-PCS; 2022-05-30)
PROC: 5A12012 Performance of Cardiac Output, Single, Manual (ICD-10-PCS; 2022-05-31)
DX: A41.9 Sepsis, unspecified organism (principal); I21.4 Non-ST elevation (NSTEMI) myocardial infarction; K76.7 Hepatorenal syndrome; J96.01 Acute respiratory failure with hypoxia; R65.21 Severe sepsis with septic shock; N18.6 End stage renal disease; D68.9 Coagulation defect, unspecified; E44.1 Mild protein-calorie malnutrition; E87.20 Acidosis, unspecified; I13.2 Hypertensive heart and chronic kidney disease with heart failure and with stage 5 chronic kidney disease, or end stage renal disease; K92.2 Gastrointestinal hemorrhage, unspecified; D63.1 Anemia in chronic kidney disease; Z20.822 Contact with and (suspected) exposure to COVID-19; E78.5 Hyperlipidemia, unspecified; E83.52 Hypercalcemia; E87.5 Hyperkalemia; I25.10 Atherosclerotic heart disease of native coronary artery without angina pectoris; I46.9 Cardiac arrest, cause unspecified; E11.51 Type 2 diabetes mellitus with diabetic peripheral angiopathy without gangrene; E11.22 Type 2 diabetes mellitus with diabetic chronic kidney disease; I50.9 Heart failure, unspecified; I48.91 Unspecified atrial fibrillation; Z99.2 Dependence on renal dialysis; Z95.0 Presence of cardiac pacemaker; Z91.15 Patient's noncompliance with renal dialysis; Z83.3 Family history of diabetes mellitus; Z89.439 Acquired absence of unspecified foot; Z79.01 Long term (current) use of anticoagulants; Z68.25 Body mass index [BMI] 25.0-25.9, adult
CPT/HCPCS: 31720; 36415; 36430; 36600; 70450; 70496; 71045; 71046; 71260; 74177; 80048; 80053; 80202; 82270; 82805; 82962; 83605; 83735; 83880; 84132; 84484; 85025; 85610; 85730; 86850; 86900; 86901; 86920; 87040; 87070; 87081; 87205; 87426; 87804; 90935; 92610; 93005; 93306; 94002; 94003; 94640; 96365; 96367; 96375; 99291; C9113; G0378; J0171; J0696; J1815; J2250; J2543; J3430; J7060; P9047